=== PATIENT | male | born 1965 | race Caucasian/White ===

== ENCOUNTER → 2016-09-28 | Outpatient (REF) | payer OTHER ==
[~2016-09-28] MED LIST: AMIT25TA PO; ATEN50TA2 PO; LISI-538 PO; LYRI75CA PO
[2016-09-28 13:54] LABS: ALBUMIN 3.9 GM/DL (3.2-5.2); ALKALINE PHOSPHATASE 91 U/L (45-117); ALT/SGPT 35 U/L (12-78); ANION GAP 11 MEQ/L (8-16); AST/SGOT 28 U/L (15-37); BILIRUBIN,TOTAL 0.5 MG/DL (0.2-1.0); BLOOD UREA NITROGEN 18 MG/DL (7-18); CARBON DIOXIDE LEVEL 22 MEQ/L (21-32); CHLORIDE LEVEL 104 MEQ/L (98-107); CHOLESTEROL LEVEL 199 MG/DL (<200); CREATININE FOR GFR 0.89 MG/DL (0.70-1.30); GLOMERULAR FILTRATION RATE > 60.0 (>56); GLUCOSE, FASTING 79 MG/DL (70-105); POTASSIUM SERUM 4.6 MEQ/L (3.5-5.1); SODIUM LEVEL 137 MEQ/L (136-145); TOTAL PROTEIN 6.9 GM/DL (6.4-8.2); TRIGLYCERIDES LEVEL 264 MG/DL (<150)
== END ==
LOC: M SFHCPLAZ 10:05
PROVIDERS: ATTEND Family Medicine
DX: Z13.220 Encounter for screening for lipoid disorders (principal); Z13.1 Encounter for screening for diabetes mellitus; Z91.19 Patient's noncompliance with other medical treatment and regimen; I10 Essential (primary) hypertension; Z79.899 Other long term (current) drug therapy
CPT/HCPCS: 36415; 80053; 80061; 83036; G0463

== ENCOUNTER → 2016-10-16 | Outpatient (REF) | payer OTHER ==
[2016-10-16 16:48] LABS: CREATININE FOR GFR 1.8 MG/DL (0.70-1.30); GLOMERULAR FILTRATION RATE 42.2 (>56)
== END ==
LOC: M LABDRAWP 15:28
PROVIDERS: ATTEND Pain Medicine Interventional Pain Medicine
DX: M54.12 Radiculopathy, cervical region (principal); I10 Essential (primary) hypertension; M51.27 Other intervertebral disc displacement, lumbosacral region; M54.81 Occipital neuralgia; M96.1 Postlaminectomy syndrome, not elsewhere classified

== ENCOUNTER → 2016-12-03 | Outpatient (CLI) | payer OTHER, MEDICAID | LOC: M OUTALCOH 08:34 | PROVIDERS: ATTEND Psychiatry & Neurology Psychiatry | DX: F11.20 Opioid dependence, uncomplicated (principal) ==

== ENCOUNTER → 2016-12-09 | Outpatient (REF) | payer OTHER ==
[2016-12-09 13:28] LABS: BASO % 0.6 % (0.0-1.0); EOS # 0.3 K/mm3 (0.0-0.50); EOS % 3.8 % (0.0-3.0); LARGE UNSTAINED CELL # 0.3 K/mm3 (0.0-0.4); LARGE UNSTAINED CELL % 3.8 % (0.0-4.0); LYMPH # 2.2 K/mm3 (1.5-4.5); LYMPH % 26.7 % (24.0-44.0); MEAN CORPUSCULAR HEMOGLOBIN 29.7 pg (27.0-33.0); MEAN CORPUSCULAR HGB CONC 33.7 g/dl (32.0-36.5); MONO # 0.7 K/mm3 (0.0-0.8); MONO % 8.3 % (0.0-5.0); NEUTROPHILS # 4.7 K/mm3 (1.8-7.7); NEUTROPHILS % 56.7 % (36.0-66.0); PLATELET COUNT, AUTOMATED 242 k/mm3 (150-450); RED CELL DISTRIBUTION WIDTH 12.9 % (11.5-14.5); WHITE BLOOD COUNT 8.2 K/mm3 (4.0-10.0)
[2016-12-09 13:32] LABS: INR 0.98
[2016-12-09 13:35] LABS: ALBUMIN 3.8 GM/DL (3.2-5.2); ALBUMIN/GLOBULIN RATIO 1.36 (1.00-1.93); ALKALINE PHOSPHATASE 94 U/L (45-117); ALT/SGPT 34 U/L (12-78); ANION GAP 4 MEQ/L (8-16); AST/SGOT 25 U/L (15-37); BILIRUBIN,TOTAL 0.7 MG/DL (0.2-1.0); BLOOD UREA NITROGEN 16 MG/DL (7-18); CALCIUM LEVEL 8.9 MG/DL (8.5-10.1); CARBON DIOXIDE LEVEL 33 MEQ/L (21-32); CHLORIDE LEVEL 99 MEQ/L (98-107); GLOMERULAR FILTRATION RATE > 60.0 (>56); GLUCOSE, FASTING 97 MG/DL (70-105); POTASSIUM SERUM 4.8 MEQ/L (3.5-5.1); SODIUM LEVEL 136 MEQ/L (136-145); TOTAL PROTEIN 6.6 GM/DL (6.4-8.2)
== END ==
LOC: M SFHCPLAZ 09:56
PROVIDERS: ATTEND Family Medicine
DX: Z01.818 Encounter for other preprocedural examination (principal); M50.20 Other cervical disc displacement, unspecified cervical region; F11.20 Opioid dependence, uncomplicated; Z79.899 Other long term (current) drug therapy
CPT/HCPCS: 80053; 81001; 85025; 85610; 85730; 87086; 93005; G0463

== ENCOUNTER 2016-12-16 11:34 | Outpatient (RCR) | payer OTHER, MEDICAID | END 2016-12-25 | LOC: M OUTALCOH 11:34 | PROVIDERS: ATTEND Psychiatry & Neurology Psychiatry | DX: F11.20 Opioid dependence, uncomplicated (principal); F17.200 Nicotine dependence, unspecified, uncomplicated ==

== ENCOUNTER → 2017-02-01 | Outpatient (CLI) | payer OTHER, MEDICAID | LOC: M OUTALCOH 12:42 | PROVIDERS: ATTEND Psychiatry & Neurology Psychiatry | DX: F11.20 Opioid dependence, uncomplicated (principal) ==

== ENCOUNTER → 2017-02-25 | Outpatient (RCR) | payer OTHER, MEDICAID | LOC: M OUTALCOH 02-10 14:54 | PROVIDERS: ATTEND Psychiatry & Neurology Psychiatry | DX: F11.20 Opioid dependence, uncomplicated (principal); F17.210 Nicotine dependence, cigarettes, uncomplicated ==

== ENCOUNTER → 2018-04-26 | Outpatient (CLI) | payer MEDICARE | LOC: M RAD 07:09 | DX: B18.2 Chronic viral hepatitis C (principal) | CPT/HCPCS: 76705 ==

== ENCOUNTER → 2018-08-01 | Outpatient (REF) | payer MEDICARE ==
[2018-08-03 14:36] LABS: HEPATITIS C QUANTITATION HCV Not Detected IU/mL (.)
== END ==
LOC: M SFHCPLAZ 13:03
DX: B18.2 Chronic viral hepatitis C (principal)

== ENCOUNTER → 2018-11-24 | Outpatient (REF) | payer MEDICARE, MEDICAID | LOC: M SFHCPLAZ 15:39 | PROVIDERS: ATTEND Hospitalist | DX: D23.4 Other benign neoplasm of skin of scalp and neck (principal) | CPT/HCPCS: 88305; G0463 ==

== ENCOUNTER → 2018-12-30 | Outpatient (REF) | payer MEDICARE ==
[2018-12-30 19:26] LABS: ALT/SGPT 100 U/L (12-78); AMYLASE 40 U/L (25-115); BILIRUBIN,TOTAL 0.3 MG/DL (0.2-1.0); BLOOD UREA NITROGEN 21 MG/DL (7-18); CALCIUM LEVEL 9.5 MG/DL (8.5-10.1); CARBON DIOXIDE LEVEL 31 MEQ/L (21-32); CHLORIDE LEVEL 104 MEQ/L (98-107); CREATININE FOR GFR 1.03 MG/DL (0.70-1.30); GLOMERULAR FILTRATION RATE > 60.0 (>56); GLUCOSE, FASTING 101 MG/DL (70-100); LIPASE 92 U/L (73-393); POTASSIUM SERUM 4.8 MEQ/L (3.5-5.1); SODIUM LEVEL 141 MEQ/L (136-145); TOTAL PROTEIN 7.1 GM/DL (6.4-8.2)
[2018-12-30 19:37] LABS: BASO % 0.5 % (0.0-1.0); EOS # 0.4 10^3/uL (0.0-0.50); EOS % 4.9 % (0.0-3.0); HEMATOCRIT 36.4 % (42.0-52.0); HEMOGLOBIN 11.7 g/dl (13.5-17.5); LYMPH # 1.9 10^3/uL (1.5-4.5); LYMPH % 25.1 % (24.0-44.0); MEAN CORPUSCULAR HEMOGLOBIN 30.1 pg (27.0-33.0); MEAN CORPUSCULAR HGB CONC 32.1 g/dl (32.0-36.5); MEAN CORPUSCULAR VOLUME 93.6 fl (80.0-96.0); MONO # 0.6 10^3/uL (0.0-0.8); MONO % 8.5 % (0.0-5.0); NEUTROPHILS # 4.5 10^3/uL (1.8-7.7); NEUTROPHILS % 60.7 % (36.0-66.0); PLATELET COUNT, AUTOMATED 264 10^3/uL (150-450); RED BLOOD COUNT 3.89 10^6/uL (4.30-6.10); WHITE BLOOD COUNT 7.4 10^3/uL (4.0-10.0)
== END ==
LOC: M LABDRWAD 10:15
PROVIDERS: ATTEND Physician Assistant Medical
DX: R10.9 Unspecified abdominal pain (principal)

== ENCOUNTER → 2019-12-06 | Outpatient (CLI) | payer MEDICARE ==
[~2019-12-06] MED LIST changes: +AMLO10TA PO; +ATOR1TAB19 PO; +CHLO125TA PO; +FLOM0.4C39 PO; +GABA-845 PO
[2019-12-06 11:39] LABS: HEMATOCRIT 37.9 % (42.0-52.0); HEMOGLOBIN 12.7 g/dl (13.5-17.5); MEAN CORPUSCULAR HGB CONC 33.5 g/dl (32.0-36.5); MEAN CORPUSCULAR VOLUME 86.5 fl (80.0-96.0); PLATELET COUNT, AUTOMATED 272 10^3/uL (150-450); RED BLOOD COUNT 4.38 10^6/uL (4.30-6.10); WHITE BLOOD COUNT 6.8 10^3/uL (4.0-10.0)
[2019-12-06 11:50] LABS: INR 1.03; PROTHROMBIN TIME 13.2 SECONDS (11.8-14.0)
[2019-12-06 12:12] LABS: ERYTHROCYTE SEDIMENTATION RATE 10 mm/hr (0-20)
[2019-12-06 12:21] LABS: ALBUMIN 3.9 GM/DL (3.2-5.2); BILIRUBIN,TOTAL 0.5 MG/DL (0.2-1.0); CALCIUM LEVEL 9.1 MG/DL (8.5-10.1); CREATININE FOR GFR 1.38 MG/DL (0.70-1.30); GLOMERULAR FILTRATION RATE 56.7 (>56); POTASSIUM SERUM 3.9 MEQ/L (3.5-5.1); TOTAL PROTEIN 6.6 GM/DL (6.4-8.2)
--- NOTE | 2019-12-06 16:41 | REP ---
Two-view chest: 12/06/2019. Indication: Preoperative assessment. Comparison: 07/17/2013. Findings: The lungs are clear. There is no pleural effusion or pneumothorax. Dextroscoliotic curve of the thoracic spine is noted. Cardiac silhouette is normal. Lower cervical spine sequelae of ACDF are noted. Impression: No acute cardiopulmonary process. Electronically Signed by Maxim Guan DO 12/06/2019 04:32 P
--- NOTE | 2019-12-06 18:53 | ECGEPIP ---
[facility] Test Date: 2019-12-06 Pat Name: CARLOTTA RIVERO Department: Room: - Gender: Male [employer]: : 1965 Requested By: Du Mendoza Order Number: [id number] Reading MD: Milton Khan Measurements Intervals [place] Rate: 73 P: 21 CO: 167 QRS: 19 QRSD: 102 T: 38 QT: 386 QTc: 426 Interpretive Statements SINUS RHYTHM Rate increased from tracing done 02-19-15 Electronically Signed on 12-06-2019 18:52:31 EDT by Milton Khan
== END ==
LOC: M LAB 10:50
PROVIDERS: ATTEND Orthopaedic Surgery
DX: Z01.818 Encounter for other preprocedural examination (principal); M17.11 Unilateral primary osteoarthritis, right knee

== ENCOUNTER → 2019-12-08 | Outpatient (CLI) | payer MEDICARE | LOC: M LABSMTC 11:21 | PROVIDERS: ATTEND Anesthesiology | DX: Z01.818 Encounter for other preprocedural examination (principal); Z11.59 Encounter for screening for other viral diseases; Z03.818 Encounter for observation for suspected exposure to other biological agents ruled out | CPT/HCPCS: C9803; U0003 ==

== ENCOUNTER 2019-12-11 14:30 | Inpatient (IN) | payer MEDICARE, MEDICAID ==
[~2019-12-11] VITALS: Ht 172.7 cm; Wt 98.2 kg
--- NOTE | 2019-12-21 16:43 | HPE ---
DATE OF SCHEDULED ADMISSION: 12/27/2019 ATTENDING PHYSICIAN: Dr. Du Mendoza CHIEF COMPLAINT: Right knee pain and stiffness. HISTORY: The patient is a 54-year-old male with progressively worsening right knee pain and stiffness. He has failed to improve with conservative measures. He continues to have symptoms with weightbearing activities and activities of daily living. He has consented for an elective right total knee arthroplasty with Dr. Mendoza for his continued symptoms. Medical optimization completed with Dr. Muniz; it was reviewed during today's visit. CURRENT MEDICATIONS: - Lipitor 80 mg daily - gabapentin 800 mg three times daily - lisinopril 40 mg daily - Norvasc 10 mg daily - Percocet one tablet every 6 hours as needed for pain - tamsulosin 0.4 mg daily - chlorthalidone 25 mg daily - naproxen 500 mg twice daily as needed ALLERGIES: There are no known drug allergies. CHRONIC MEDICAL CONDITIONS: Chronic hepatitis C, history of IV drug abuse and narcotics, lipoma of the spermatic cord, inguinal hernia on the right, insomnia, lumbar degenerative disc disease, hyperlipidemia, hypertension, BPH. PAST SURGICAL HISTORY: Cholecystectomy, tonsillectomy and adenoidectomy, back surgery. SOCIAL HISTORY: The patient is a current smoker and not interested in quitting. He does not use alcohol. The patient has a history of IV drug abuse and narcotic abuse. REVIEW OF SYSTEMS: The patient denies fevers, chills, nausea, vomiting or diarrhea. Denies chest pain, shortness of breath, lightheadedness, dizziness or headaches. Denies any abdominal pain. Denies any recent upper respiratory or urinary tract infection symptoms. He does continue to have right knee pain with weightbearing activities and activities of daily living. PHYSICAL EXAMINATION: General: Well-nourished, well-developed male in no apparent distress. He is alert, oriented and cooperative. Mood and affect are appropriate. Vital signs: Height 68 inches, weight 220 pounds, temperature 96.9, blood pressure 125/65, heart rate 72, respirations 24. Neck: Supple without lymphadenopathy. Heart: Regular rate and rhythm. Lungs: Clear to auscultation bilaterally. Breathing is regular and nonlabored. Abdomen: Bowel sounds are present. Abdomen is soft and nontender to palpation. Musculoskeletal: Right knee exhibits no gross abnormalities. Skin is intact. There is tenderness along the medial joint line. Range of motion is between 2 and 120 degrees. Strength in the right lower extremity is 5/5. There was no hip irritability elicited with range of motion testing. The patient's calf is soft, nontender to palpation with no palpable cords noted. He is neurovascularly intact distally. IMAGING/LABORATORY DATA: Chest x-ray: No acute cardiopulmonary process. Right knee x-ray: Notable for end-stage degenerative changes. EKG does show a sinus rhythm. Prothrombin time is 13.2, INR is 1.03. Complete blood count: ESR 10, WBC is 6.8, RBC is 4.38, hemoglobin decreased at 12.7, hematocrit decreased at 37.9, platelets 272. Comprehensive metabolic profile: Fasting glucose 89, BUN 15, creatinine elevated at 1.38, GFR 56.7, sodium 138, potassium 3.9, chloride 102, carbon dioxide 30, anion gap decreased at 6, calcium 91, AST 11, ALT 28, alkaline phosphatase 95, total bilirubin 0.5, total protein 6.6, albumin 3.9, albumin-globulin ratio 1.4. IMPRESSION: Right knee osteoarthritis with x-rays notable for end-stage degenerative changes. PLAN: The patient has consented for an elective right total knee arthroplasty with Dr. Mendoza for his continued symptoms. Medical optimization completed with Dr. Muniz. The patient will contact the surgery center the day before surgery to get a report time for the following day. He will be nothing by mouth after midnight the night before surgery with the exception of any medications he may take with a small sip of water per his primary animal care giver. The patient will follow his primary animal care giver's recommendations for how to take his daily medications and when to stop anticoagulants if needed. The patient will start using his Hibiclens and Bactroban 5 days prior to surgery.
[2019-12-27] VITALS (11 sets, daily range): BP systolic 110–142; BP diastolic 59–81; O2SAT 96
[2019-12-27] MEDS ORDERED: ceFAZolin SOD 2 GM in IV 1 EA IV ONE (07:00)
[2019-12-27] MEDS ORDERED: LR 1,000 ML IV ONE (07:00)
[2019-12-27] MEDS ORDERED: TRANEXAMIC ACID 100 MG/ML 10ML VIAL As Ordered ONE (08:55)
[2019-12-27] MEDS ORDERED: ceFAZolin 1GM VIAL (J0690 PER 500MG) As Ordered ONE (08:55)
[2019-12-27] MEDS ORDERED: EPINEPHrine INJ 1 MG/ML 1ML AMP As Ordered ONE (08:55)
[2019-12-27] MEDS ORDERED: BUPIVACAINE LIPOSOME/PF 1.3% 20ML VIAL (13.3MG/ML)(EXPAREL)(C9290 PER1MG) As Ordered ONE (08:55)
[2019-12-27] MEDS ORDERED: MIDAZOLAM INJ 2MG/2ML VIAL (J2250 PER 1MG) As Ordered ONE ×3 (08:59→11:50)
[2019-12-27] MEDS ORDERED: fentaNYL 100 MCG/2 ML INJECTION (J3010) As Ordered ONE ×3 (08:59→11:51)
[2019-12-27] MEDS: CHLORTHALIDONE 12.5MG PER 1/2 TABLET PO SCH (09:00)
[2019-12-27] MEDS ORDERED: propofoL 200 MG/20 ML VIAL As Ordered ONE (09:37)
[2019-12-27] MEDS ORDERED: ONDANSETRON 4MG/2ML VIAL As Ordered ONE (09:37)
[2019-12-27] MEDS ORDERED: METOCLOPRAMIDE INJ 10MG/2ML VIAL (J2765 PER 1) As Ordered ONE (09:37)
[2019-12-27] MEDS ORDERED: LIDOCAINE 2% 100MG/5ML SDV (FOR ANES.) As Ordered ONE (09:37)
[2019-12-27] MEDS ORDERED: MIDAZOLAM INJ 2MG/2ML VIAL (J2250 PER 1MG) IV ONE (09:45)
[2019-12-27] MEDS ORDERED: fentaNYL 100 MCG/2 ML INJECTION (J3010) IV ONE (09:45)
--- NOTE | 2019-12-27 09:56 | IPN ---
DATE: 12/27/2019 Patient seen and examined. He wishes to go ahead with a right total knee arthroplasty. He understands the nature of this, the risks of bleeding, infection, damage to nerves, vessels, persistent pain, wear loosening, blood clots, medical problems, , among others. I explained to the patient that I think he is going to probably have significantly more postoperative pain than most patients because of his history of narcotic use and abuse. He also indicated that when he came in this morning he said he felt like he was still drunk from drinking last night, but apparently his ethyl alcohol (EtOH) level was near zero. He does wish to go ahead with the surgery. I explained him that I would anticipate trying to get him home tomorrow if he is getting around okay.
[2019-12-27] MEDS ORDERED: KETAMINE INJ 500 MG/5 ML VIAL As Ordered ONE (11:21)
[2019-12-27] MEDS ORDERED: hydrALAZINE 20MG/ML 1ML VIAL (J0360 PER 20MG) As Ordered ONE (11:21)
[2019-12-27] MEDS ORDERED: ROCURONIUM BROMIDE 50 MG/5 ML VIAL As Ordered ONE (11:21)
[2019-12-27] MEDS ORDERED: KETAMINE HCL 200 MG/20 ML VIAL As Ordered ONE (11:23)
[2019-12-27] MEDS ORDERED: EPINEPHrine INJ 1 MG/ML 1ML AMP ONE (11:24)
[2019-12-27] MEDS ORDERED: ROPIvacaine 0.5% 30ML INJECTION (J2795 PER 1MG) ONE (11:24)
[2019-12-27] MEDS ORDERED: dexameTHASONE 10MG/1ML VIAL PRES.FREE (J1100 PER 1MG) ONE (11:24)
[2019-12-27] MEDS ORDERED: SUGAMMADEX SODIUM 500 MG/5 ML VIAL (BRIDION) As Ordered ONE (11:27)
[2019-12-27] MEDS: fentaNYL 100 MCG/2 ML INJECTION (J3010) IV PRN ×4 (11:52→12:17)
[2019-12-27] MEDS ORDERED: HYDROMORPHONE HCL 0.5 MG/ 0.5 ML SYRINGE (J1170 PER 1) As Ordered ONE (11:57)
[2019-12-27] MEDS: HYDROMORPHONE HCL 0.5 MG/ 0.5 ML SYRINGE (J1170 PER 1) IV PRN ×4 (12:02→12:45)
[2019-12-27] MEDS ORDERED: ACETAMINOPHEN TAB 650MG DOSE (2X325MG) PO PRN (12:15)
[2019-12-27] MEDS ORDERED: MORPHINE 4 MG/ML 1ML VIAL/SYRINGE (J2270) IV PRN (12:15)
[2019-12-27] MEDS ORDERED: PERCOCET 5MG/325MG TAB PO PRN ×2 (12:15→21:45)
[2019-12-27] MEDS ORDERED: LR 1,000 ML IV SCH ×2 (12:15)
[2019-12-27] MEDS ORDERED: ONDANSETRON 4MG/2ML VIAL IV PRN ×2 (12:15)
[2019-12-27] MEDS: oxyCODONE 5MG TAB PO PRN ×2 (12:18→12:51)
--- NOTE | 2019-12-27 12:32 | REP ---
Clinical: Status post knee replacement. Technique portable AP and cross-table lateral views. Findings: The patient is status post right knee replacement with normal positioning and appearance to the femoral and tibial components. Overlying postsurgical changes appreciated. Impression: Status post right knee replacement. Electronically Signed by Rodrigo Silvestre MD 12/27/2019 12:23 P
[2019-12-27] MEDS ORDERED: GABA800T4 PO (13:15)
[2019-12-27] MEDS ORDERED: LISI40TA PO (13:15)
--- NOTE | 2019-12-27 13:16 | CR.PDOC ---
General Date of Consultation: Dec 27, 2019 Consultation REASON FOR CONSULTATION/CHIEF COMPLAINT: Who presented to [facility] for an elective right knee arthroplasty Medical management HISTORY OF PRESENT ILLNESS: Patient is a 54-year-old male with PMHx of HTN, DLP, Chronic back / neck pain, OA, Hepatitis C (s/p treatment), Hx of IVDA, BPH, Insomnia, who presented to [facility] for an elective orthopedic procedure. Patient had an elective right knee arthroplasty completed by orthopedic surgery. He has received outpatient medical clearance from his primary care provider. Patient reported that he was taken off of his opiate therapy 2 weeks ago and was experiencing significant pain yesterday evening. Patient self medicated at home by drinking 6 years. This morning patient had an alcohol level that was found to be in significant and surgery was continued as scheduled. Patient was seen postoperatively and reports pain. Unable to address any specific questions, however, did report significant pain of his back and both knees. ALLERGIES: Please see below. HOME MEDICATIONS: Please see below. PAST MEDICAL HISTORY: HTN, DLP, Chronic back / neck pain, OA, Hepatitis C (s/p treatment), Hx of IVDA, BPH, Insomnia, PAST SURGICAL HISTORY: Right inguinal hernia repair Cholecystectomy Tonsillectomy Adenoidectomy Back surgery; lower back fusion 2005, Neck fusion 2014 FAMILY HISTORY: Family history was reviewed and is noncontributory to this hospitalization SOCIAL HISTORY: - Reported use of alcohol yesterday, patient is an active smoker - Denies recent travel or sick contacts REVIEW OF SYSTEMS: Patient is reporting significant pain of his back and knees and is unable to answer other questions PHYSICAL EXAMINATION: - Vitals: BP 165/93, HR 85, RR 16, Sat 97%RA, Temp 97.9F - General: Lying in bed, Appears to be in pain / uncomfortable, AAOx3 - HEENT: NC, AT, PERRLA - CVS: +S1S2 - Lungs: Fair air entry bilaterally, No appreciable wheezing / rales / rhonchi - Abdomen: Soft, Non-distended, Non-tender - Extremities: No lower extremity edema, No calf tenderness - Neuro: No focal motor or sensory deficit - Skin: No visible rashes LABORATORY DATA: Please see below. ASSESSMENT/PLAN: Elective total right knee arthroplasty - Patient presented to [facility] for elective orthopedic procedure - Has received outpatient medical clearance for this procedure from primary care provider - Pain control, anticoagulation, and physical therapy at the direction of primary orthopedic team HTN - BP moderately elevated; likely 2/2 pain - Pain currently being managed by orthopedic team - c/w Amlodipine, Chlorthalidone and Lisinopril with holding parameters DLP - c/w Atorvastatin Chronic back / neck pain / OA - c/w Gabapentin - Pain control as per orthopedic team Hepatitis C - s/p treatment) Hx of IVDA / Alcohol abuse - Will start Thiamine, Folate and Multivitamins - Will start CIWA protocol - Will continue with continuous pulse oximeter / SARA protocol BPH - c/w Tamsulosin Insomnia DVT prophylaxis - As per primary orthopedic team Vital Signs/I&O Vital Signs Date Time Temp Pulse Resp B/P (MAP) Pulse Ox O2 Delivery O2 Flow Rate FiO2 12/27/19 12:55 97.9 85 16 165/93 (117) 97 Room Air 12/27/19 11:55 10 Laboratory Data Labs 24H Laboratory Tests 2 12/27/19 08:14: Ethyl Alcohol Level 0.006 Allergies Coded Allergies: No Known Allergies (Verified , 08/18/04) Home Medications Scheduled Amlodipine Besylate (Norvasc) 10 Mg Tablet, 10 MG PO DAILY, (Reported) Atorvastatin Calcium (Atorvastatin Calcium) 10 Mg Tablet, 80 MG PO DAILY, (Reported) Chlorthalidone (Chlorthalidone) 25 Mg Tablet, 12.5 MG PO DAILY, (Reported) Gabapentin (Gabapentin) 400 Mg Capsule, 800 MG PO TID, (Reported) Lisinopril (Lisinopril) 20 Mg Tab, 40 MG PO DAILY, (Reported) Tamsulosin HCl (Flomax) 0.4 Mg Capsule, 0.4 MG PO DAILY, (Reported) YOSVANY ESQUIVEL MD Dec 27, 2019 13:16
[2019-12-27] MEDS: MORPHINE 2 MG/ML 1ML VIAL (J2270) IV PRN ×2 (13:44→18:34)
[2019-12-27] MEDS: ATORVASTATIN 20 MG TAB PO SCH (14:02)
[2019-12-27] MEDS: amLODIPine 10 MG TAB PO SCH (14:03)
[2019-12-27] MEDS: FOLIC ACID 1 MG TAB PO SCH (14:03)
[2019-12-27] MEDS: MULTIVITAMINS/MINERALS THERAP 1 TAB PO SCH (14:03)
[2019-12-27] MEDS: lisinopriL 20 MG TAB PO SCH (14:03)
[2019-12-27] MEDS: THIAMINE 100 MG TAB PO SCH (14:03)
[2019-12-27] MEDS: ceFAZolin SOD 2 GM in IV 1 EA IV SCH (17:42)
[2019-12-27] MEDS: GABAPENTIN 400 MG CAP PO SCH (19:57)
[2019-12-27] MEDS ORDERED: MORPHINE 15 MG SA TAB PO SCH (20:00)
[2019-12-27] MEDS: PERCOCET 5MG/325MG TAB PO PRN (21:44)
[2019-12-28] VITALS (13 sets, daily range): BP systolic 132–160; BP diastolic 76–89; O2SAT 96–98
[2019-12-28] MEDS: ceFAZolin SOD 2 GM in IV 1 EA IV SCH (01:42)
[2019-12-28] MEDS: PERCOCET 5MG/325MG TAB PO PRN ×5 (01:43→21:01)
[2019-12-28] MEDS: MORPHINE 4 MG/ML 1ML VIAL/SYRINGE (J2270) IV PRN ×6 (06:15→22:41)
[2019-12-28] MEDS ORDERED: XARE10TA PO (06:43)
[2019-12-28] MEDS ORDERED: MORP-69 PO (06:43)
[2019-12-28] MEDS ORDERED: PERC5TAB12 PO (06:43)
[2019-12-28 07:08] LABS: HEMOGLOBIN 12.1 g/dl (13.5-17.5); MEAN CORPUSCULAR HEMOGLOBIN 29.6 pg (27.0-33.0); MEAN CORPUSCULAR HGB CONC 33.6 g/dl (32.0-36.5); PLATELET COUNT, AUTOMATED 310 10^3/uL (150-450); RED BLOOD COUNT 4.09 10^6/uL (4.30-6.10); WHITE BLOOD COUNT 14.7 10^3/uL (4.0-10.0)
[2019-12-28 07:33] LABS: BLOOD UREA NITROGEN 21 MG/DL (7-18); CALCIUM LEVEL 9.4 MG/DL (8.5-10.1); CARBON DIOXIDE LEVEL 33 MEQ/L (21-32); CHLORIDE LEVEL 98 MEQ/L (98-107); CREATININE FOR GFR 1.13 MG/DL (0.70-1.30); GLOMERULAR FILTRATION RATE > 60.0 (>56); GLUCOSE, FASTING 115 MG/DL (70-100); MAGNESIUM LEVEL 2.2 MG/DL (1.8-2.4); POTASSIUM SERUM 4.3 MEQ/L (3.5-5.1); SODIUM LEVEL 135 MEQ/L (136-145)
[2019-12-28] MEDS: lisinopriL 20 MG TAB PO SCH (07:48)
[2019-12-28] MEDS: amLODIPine 10 MG TAB PO SCH (07:50)
[2019-12-28] MEDS: GABAPENTIN 400 MG CAP PO SCH ×3 (07:50→21:01)
[2019-12-28] MEDS: CHLORTHALIDONE 12.5MG PER 1/2 TABLET PO SCH (07:50)
[2019-12-28] MEDS: TAMSULOSIN 0.4 MG CAP PO SCH (07:51)
[2019-12-28] MEDS: MIRALAX *UNIT DOSE* 17GM PACKET PO SCH (07:51)
[2019-12-28] MEDS: MOM 30ML SUSPENSION UDC PO SCH (07:51)
[2019-12-28] MEDS: FOLIC ACID 1 MG TAB PO SCH (07:51)
[2019-12-28] MEDS: MULTIVITAMINS/MINERALS THERAP 1 TAB PO SCH (07:51)
[2019-12-28] MEDS: THIAMINE 100 MG TAB PO SCH (07:51)
[2019-12-28] MEDS: ATORVASTATIN 20 MG TAB PO SCH (07:51)
[2019-12-28] MEDS: LORazepam 2 MG TAB PO PRN ×2 (09:51→15:07)
--- NOTE | 2019-12-28 10:35 | IPNPDOC ---
Text Note Date of Service The patient was seen on 12/28/19. NOTE Subjective: Patient is a 54-year-old male with PMHx of HTN, DLP, Chronic back / neck pain, OA, Hepatitis C (s/p treatment), Hx of IVDA, BPH, Insomnia, who presented to [facility] for an elective orthopedic procedure. Patient had an elective right knee arthroplasty completed by orthopedic surgery. He has received outpatient medical clearance from his primary care provider. Patient was seen and examined at the bedside. Patient reports that he still experiencing right knee pain. Denies any nausea, vomiting, abdominal pain, diarrhea, or urinary discomfort Objective: Vitals (See below) General: Lying in bed, reporting right knee pain, AAOx3 HEENT: NC, AT CVS: +S1S2 Lungs: Fair air entry b/l, -w/r/r Abdomen: Soft, ND, NT Extremities: - Edema, - Calf tenderness Assessment and plan: Elective total right knee arthroplasty (POD#1) - Patient presented to [facility] for elective orthopedic procedure - Has received outpatient medical clearance for this procedure from primary care provider - Pain control, anticoagulation, and physical therapy at the direction of [facility] orthopedic team HTN - BP better controlled - Pain currently being managed by orthopedic team - c/w Amlodipine, Chlorthalidone and Lisinopril with holding parameters DLP - c/w Atorvastatin Chronic back / neck pain / OA - c/w Gabapentin - Pain control as per orthopedic team Hepatitis C - s/p treatment Hx of IVDA / Alcohol abuse - c/w Thiamine, Folate and Multivitamins - No evidence of alcohol withdrawal - c/w CIWA protocol - Will continue with continuous pulse oximeter / SARA protocol BPH - c/w Tamsulosin Insomnia DVT prophylaxis - As per primary orthopedic team VS,Fishbone, I+O VS, Fishbone, I+O Laboratory Tests 12/28/19 06:57 Vital Signs Date Time Temp Pulse Resp B/P (MAP) Pulse Ox O2 Delivery O2 Flow Rate FiO2 12/28/19 09:13 20 Room Air 12/28/19 08:30 97.4 82 152/82 (105) 100 12/27/19 11:55 10 I&O- Last 24 Hours up to 6 AM 12/28/19 06:00 Intake Total 3130 ml Output Total 3750 ml Balance -620 ml YOSVANY ESQUIVEL MD Dec 28, 2019 10:35
[2019-12-28] MEDS: RIVAROXABAN 10 MG TAB (XARELTO) PO SCH (16:53)
[2019-12-29] VITALS (8 sets, daily range): BP systolic 104–150; BP diastolic 67–101; O2SAT 94
[2019-12-29] MEDS: MORPHINE 4 MG/ML 1ML VIAL/SYRINGE (J2270) IV PRN ×4 (02:40→21:49)
[2019-12-29] MEDS: LORazepam 2 MG TAB PO PRN (02:40)
[2019-12-29] MEDS: PERCOCET 5MG/325MG TAB PO PRN ×4 (06:13→22:49)
[2019-12-29 08:34] LABS: BASO # 0.1 10^3/uL (0.0-0.2); BASO % 0.5 % (0.0-1.0); EOS # 0.2 10^3/uL (0.0-0.5); EOS % 1.5 % (0.0-3.0); HEMATOCRIT 31.9 % (42.0-52.0); HEMOGLOBIN 10.9 g/dl (13.5-17.5); LYMPH # 1.8 10^3/uL (1.5-5.0); MEAN CORPUSCULAR HEMOGLOBIN 29.9 pg (27.0-33.0); MEAN CORPUSCULAR HGB CONC 34.2 g/dl (32.0-36.5); MEAN CORPUSCULAR VOLUME 87.4 fl (80.0-96.0); MONO # 0.9 10^3/uL (0.0-0.8); MONO % 9.3 % (0.0-5.0); NEUTROPHILS # 6.8 10^3/uL (1.5-8.5); NEUTROPHILS % 70.4 % (36.0-66.0); PLATELET COUNT, AUTOMATED 255 10^3/uL (150-450); RED BLOOD COUNT 3.65 10^6/uL (4.30-6.10); WHITE BLOOD COUNT 9.7 10^3/uL (4.0-10.0)
[2019-12-29 08:57] LABS: BLOOD UREA NITROGEN 18 MG/DL (7-18); CARBON DIOXIDE LEVEL 29 MEQ/L (21-32); CHLORIDE LEVEL 99 MEQ/L (98-107); GLOMERULAR FILTRATION RATE > 60.0 (>56); GLUCOSE, FASTING 134 MG/DL (70-100); MAGNESIUM LEVEL 2.1 MG/DL (1.8-2.4); POTASSIUM SERUM 3.9 MEQ/L (3.5-5.1); SODIUM LEVEL 137 MEQ/L (136-145)
[2019-12-29] MEDS: lisinopriL 20 MG TAB PO SCH (08:59)
[2019-12-29] MEDS: MOM 30ML SUSPENSION UDC PO SCH (08:59)
[2019-12-29] MEDS: TAMSULOSIN 0.4 MG CAP PO SCH (08:59)
[2019-12-29] MEDS: ATORVASTATIN 20 MG TAB PO SCH (08:59)
[2019-12-29] MEDS: MULTIVITAMINS/MINERALS THERAP 1 TAB PO SCH (08:59)
[2019-12-29] MEDS: MIRALAX *UNIT DOSE* 17GM PACKET PO SCH (08:59)
[2019-12-29] MEDS: FOLIC ACID 1 MG TAB PO SCH (08:59)
[2019-12-29] MEDS: CHLORTHALIDONE 12.5MG PER 1/2 TABLET PO SCH (09:00)
[2019-12-29] MEDS: amLODIPine 10 MG TAB PO SCH (09:00)
[2019-12-29] MEDS: GABAPENTIN 400 MG CAP PO SCH ×3 (09:00→20:02)
[2019-12-29] MEDS: THIAMINE 100 MG TAB PO SCH (09:00)
--- NOTE | 2019-12-29 09:23 | IPN ---
DATE: 12/29/2019 CHIEF COMPLAINT: Postoperative right total knee arthroplasty. This is 54-year-old man who underwent right total knee arthroplasty by Dr. Mendoza. His main concern is his pain control. He complains of pain with palpation to the knee. There is plan for him to see physical therapist today and start trying to do stairs. He has no other concerns or complaints. PHYSICAL EXAMINATION: Vital Signs: Blood pressure 149/95, pulse rate 77, temperature 98.7, 98% on room air, respiratory rate 18. He is comfortable otherwise aside from pain to palpation to the knee. Dressings intact and dry. He seems to lie with the knee in a bit of a flexed position. No calf pain. Normal sensation and motor function to his foot. He is able to dorsiflex and plantar flex the foot. Strong posterior tibialis pulse. Hemoglobin from yesterday 12.1. ASSESSMENT AND PLAN: 54-year-old man who needs to clear the stairs first before being discharged home. He seems be having still some issues with pain control. Hopefully, we can manage his pain appropriately and he can be discharged home today if he is safe to clear the stairs. If not, hopefully tomorrow. Venous thromboembolism (VTE) prophylaxis with Xarelto.
--- NOTE | 2019-12-29 10:52 | IPNPDOC ---
Text Note Date of Service The patient was seen on 12/29/19. NOTE Subjective: Patient is a 54-year-old male with PMHx of HTN, DLP, Chronic back / neck pain, OA, Hepatitis C (s/p treatment), Hx of IVDA, BPH, Insomnia, who presented to [facility] for an elective orthopedic procedure. Patient had an elective right knee arthroplasty completed by orthopedic surgery. He has received outpatient medical clearance from his primary care provider. Patient was seen and examined at the bedside. Patient reports that his right knee still in pain. Has worked with physical therapy has not yet cleared. Denies any chest pain, palpitations, abdominal pain, diarrhea, or urinary discomfort Objective: Vitals (See below) General: Remains in bed, appears to be relatively comfortable, oriented 3 HEENT: NC, AT CVS: +S1S2 Lungs: Air entry is fair bilaterally without evidence of rhonchi, crackles or wheezing Abdomen: Is without distention or tenderness, and remained soft Extremities: Lower extremities are free of pitting edema, - Calf tenderness Assessment and plan: Elective total right knee arthroplasty (POD#2) - Patient presented to [facility] for elective orthopedic procedure - Has received outpatient medical clearance for this procedure from primary care provider - Pain control, anticoagulation, and physical therapy at the direction of [facility] s/p Leukocytosis - likely 2/2 reactive etiology - No evidence of infection - Hemodynamically stable and afebrile - Hold off on antibiotic therapy HTN - BP well controlled - Pain currently being managed by orthopedic team - c/w Amlodipine, Chlorthalidone and Lisinopril with holding parameters DLP - c/w Atorvastatin Chronic back / neck pain / OA - c/w Gabapentin - Pain control as per orthopedic team Hepatitis C - s/p treatment Hx of IVDA / Alcohol abuse - c/w Thiamine, Folate and Multivitamins - No evidence of alcohol withdrawal - c/w CIWA protocol - c/w pulse oximeter / SARA protocol BPH - c/w Tamsulosin Insomnia DVT prophylaxis - As per primary orthopedic team Disposition: - Patient will likely be discharged home once cleared by physical therapy VS,[place], I+O VS, [place], I+O Laboratory Tests 12/29/19 07:59 Vital Signs Date Time Temp Pulse Resp B/P (MAP) Pulse Ox O2 Delivery O2 Flow Rate FiO2 12/29/19 09:01 19 12/29/19 09:00 94 Room Air 12/29/19 09:00 75 12/29/19 08:59 118/71 12/29/19 06:00 98.7 12/27/19 11:55 10 I&O- Last 24 Hours up to 6 AM 12/29/19 06:00 Intake Total 2320 ml Output Total 1300 ml Balance 1020 ml YOSVANY ESQUIVEL MD Dec 29, 2019 10:52
[2019-12-29] MEDS: RIVAROXABAN 10 MG TAB (XARELTO) PO SCH (17:30)
[2019-12-30] MEDS: PERCOCET 5MG/325MG TAB PO PRN ×2 (04:22→10:17)
[2019-12-30] MEDS ORDERED: XARE10TA PO ×2 (05:51→10:11)
[2019-12-30 06:00] VITALS: BP 103/66
[2019-12-30 06:53] LABS: HEMATOCRIT 32.4 % (42.0-52.0); HEMOGLOBIN 10.7 g/dl (13.5-17.5); MEAN CORPUSCULAR HEMOGLOBIN 29.4 pg (27.0-33.0); PLATELET COUNT, AUTOMATED 246 10^3/uL (150-450); RED BLOOD COUNT 3.64 10^6/uL (4.30-6.10); WHITE BLOOD COUNT 8.4 10^3/uL (4.0-10.0)
[2019-12-30] MEDS: MIRALAX *UNIT DOSE* 17GM PACKET PO SCH (08:07)
[2019-12-30] MEDS: MOM 30ML SUSPENSION UDC PO SCH (08:07)
[2019-12-30 08:08] VITALS: BP 101/65
[2019-12-30] MEDS: lisinopriL 20 MG TAB PO SCH (08:08)
[2019-12-30] MEDS: amLODIPine 10 MG TAB PO SCH (08:08)
[2019-12-30] MEDS: FOLIC ACID 1 MG TAB PO SCH (08:08)
[2019-12-30] MEDS: CHLORTHALIDONE 12.5MG PER 1/2 TABLET PO SCH (08:09)
[2019-12-30] MEDS: THIAMINE 100 MG TAB PO SCH (08:09)
[2019-12-30] MEDS: MULTIVITAMINS/MINERALS THERAP 1 TAB PO SCH (08:09)
[2019-12-30] MEDS: ATORVASTATIN 20 MG TAB PO SCH (08:09)
[2019-12-30] MEDS: GABAPENTIN 400 MG CAP PO SCH (08:09)
[2019-12-30] MEDS: TAMSULOSIN 0.4 MG CAP PO SCH (08:09)
[2019-12-30] MEDS ORDERED: MORPHINE 15 MG SA TAB PO SCH (09:00)
[2019-12-30] MEDS ORDERED: MORP15TASA PO (10:07)
[2019-12-30] MEDS ORDERED: PERC5TAB12 PO (10:07)
--- NOTE | 2019-12-30 14:22 | RO ---
DATE OF PROCEDURE: 12/27/2019 PREOPERATIVE DIAGNOSIS: Right knee osteoarthritis. POSTOPERATIVE DIAGNOSIS: Right knee osteoarthritis. PROCEDURE: Right total knee arthroplasty. SURGEON: Du Mendoza MD MEDICAL RECRUITER: Xochitl Mercado PA-C ANESTHESIA: Spinal. ESTIMATED BLOOD LOSS (EBL): 50. COMPLICATION: None. INDICATIONS: This is a 54-year-old gentleman with some chronic pain issues who has had right knee pain. It is severe arthritis, and he wished to go ahead with knee replacement. DESCRIPTION OF PROCEDURE: The patient was taken to the operating room, placed in the supine position after spinal anesthesia was induced. The right lower extremity was prepped and draped in the usual sterile fashion. Time-out was performed, and a tourniquet was inflated. I then created a longitudinal incision over the anterior aspect of the right knee. Sharp dissection was carried down through subcutaneous tissue until the deep layer was encountered. A medial parapatellar arthrotomy was performed. I then everted the patella, flexed the knee up. I had done a medial release, as well, used the canal-initiating reamer on the femoral side followed by the intramedullary guide set at 9 mm of cut and 5 of valgus. This was pinned in place, the distal femoral cut was made protecting soft tissues, and then I sized the femur to be a 4. The pin holes were placed in the end of the femur, and the cutting block was then secured. Remaining four cuts were made. I then directed our attention to the tibia. The tibial alignment guide was placed. Retractors were placed, and then I made a proximal tibia cut approximately 2 mm off the low side because it was quite deficient. This was about 12 mm off the high side. This bone was removed. The posterior cruciate ligament (PCL) had to be sacrificed due to the thickness of this cut, as I had anticipated. I then used a stone spreader operator to remove soft tissue and osteophytes from either side of the knee. We then prepared the box cut. The box cutting guide was then secured. The remaining cuts were made, and the excess bone was removed. The remaining PCL had been removed with the cautery. All hemostasis was controlled with cautery. Spacer blocks were then used, and I was deciding between a 10 and a 12 for flexion and extension, but overall the soft tissue balance was quite good. We then prepared the tibia. The size 5 tray fit nicely. This was pinned in place and drilled and broached. Trial components were then placed, and I elected to go ahead with a size 10 polyethylene, 4 femur, and 5 tibia. I then freehand cut the patella, removing about 7 mm of bone, sized to be a 35. I had removed any osteophytes from around the knee and some from around the patella. Drilled the holes for the patella, placed the patella which tracked very nicely. I then also drilled the holes in the end of the femur. The trial components fit very nicely and had excellent stability, excellent range of motion, and there was no kicking off of the femoral component. The trial components were removed. I irrigated copiously, placed the Exparel in the deep tissues. The actuarial assistant prepared the bone cement in the modern technique. Once the surfaces were irrigated and dried, I then cemented on the components, placed the polyethylene, the cement on the patella, removed all excess bone cement; and once the cement hardened, I removed the patellar clamp. The deep layer was closed with #1 Vicryl suture and running Stratafix, irrigating several times. I put the knee through a range of motion. The patella was tracking nicely, and there was excellent stability. Irrigated, closed the subcutaneous with 2-0 Vicryl, the skin with sumanth. Sterile dressing was applied. Tourniquet had been deflated previously once the cement hardened. He was taken to recovery room in stable condition. There were no known complications. The plan will be routine postoperative. ADDENDUM: The actuarial assistant was instrumental in holding retractors and assisting in mixing the bone cement and assisting in wound closure. Addendum 12/30/2019 aml
--- NOTE | 2020-01-13 12:11 | DSES ---
DATE OF ADMISSION: 12/27/2019 DATE OF DISCHARGE: 12/30/2019 ATTENDING PHYSICIAN: Dr. Du Mendoza ADMISSION DIAGNOSIS: Right knee pain and stiffness. OTHER DIAGNOSES: 1. Chronic hepatitis C. 2. History of IV drug abuse and narcotics. 3. Lipoma of the spermatic cord. 4. Inguinal hernia on the right. 5. Insomnia. 6. Lumbar degenerative disk disease. 7. Hyperlipidemia. 8. Hypertension. 9. Benign prostatic hypertrophy (BPH). DISCHARGE DIAGNOSIS: Right knee pain and stiffness status post right total knee arthroplasty. HISTORY: The patient is a 54-year-old male with progressively worsening right knee pain and stiffness. He failed to improve with conservative measures. He continued to have symptoms with weightbearing activities and activities of daily living. He consented for an elective right total knee arthroplasty with Dr. Mendoza for his continued symptoms. OPERATION PERFORMED: Right total knee arthroplasty. HOSPITAL COURSE: The patient underwent a right total knee arthroplasty under spinal anesthesia which was uneventful. He did have some issues with pain control after his surgery, but otherwise his hospital course was without complication. He was up with physical therapy per their protocol weightbearing as tolerated on the right lower extremity. The patient was discharged on oral pain medications and will resume his preoperative medications and diet. The patient will use his thromboembolic deterrent stockings and anticoagulant postoperatively to prevent deep venous thrombosis. He will follow up in our office in 12-14 days for wound check and staple removal. He is encouraged to contact our office sooner if there is any increase in pain, redness, drainage, numbness or tingling in the extremity, fever greater than 101 degrees, or any other concerns. Please see medical records for additional details. LUIS MANUEL
== END 2019-12-30 11:00 | disposition home health service (06) | DRG 470 ==
LOC: M OR 12-27 07:26 → M MS5PR 12-27 13:41
PROVIDERS: ADMIT Orthopaedic Surgery; ATTEND Orthopaedic Surgery
PROC: 0SRC0J9 Replacement of Right Knee Joint with Synthetic Substitute, Cemented, Open Approach (ICD-10-PCS; principal; 2019-12-27 09:30)
DX: M17.11 Unilateral primary osteoarthritis, right knee (principal); Z11.59 Encounter for screening for other viral diseases; G47.00 Insomnia, unspecified; I10 Essential (primary) hypertension; N20.0 Calculus of kidney; E78.5 Hyperlipidemia, unspecified; B18.2 Chronic viral hepatitis C; M51.36 Other intervertebral disc degeneration, lumbar region; K40.91 Unilateral inguinal hernia, without obstruction or gangrene, recurrent; F17.200 Nicotine dependence, unspecified, uncomplicated; Z79.899 Other long term (current) drug therapy; D72.829 Elevated white blood cell count, unspecified

== ENCOUNTER → 2019-12-24 | Outpatient (CLI) | payer MEDICARE ==
[~2019-12-24] MED LIST changes: +GABA800T4 PO; +LISI40TA PO; +MORP-69 PO; +PERC5TAB12 PO; +XARE10TA PO
== END ==
LOC: M LABSMTC 09:17
PROVIDERS: ATTEND Anesthesiology
DX: Z01.818 Encounter for other preprocedural examination (principal); Z11.59 Encounter for screening for other viral diseases

== ENCOUNTER → 2020-03-26 | Outpatient (CLI) | payer MEDICARE ==
[~2020-03-26] MED LIST changes: +MORP15TASA PO
[2020-03-26 12:31] LABS: ALBUMIN 3.9 GM/DL (3.2-5.2); ALT/SGPT 37 U/L (12-78); BILIRUBIN,TOTAL 0.4 MG/DL (0.2-1.0); BLOOD UREA NITROGEN 16 MG/DL (7-18); CALCIUM LEVEL 9.4 MG/DL (8.5-10.1); CARBON DIOXIDE LEVEL 29 MEQ/L (21-32); CHLORIDE LEVEL 103 MEQ/L (98-107); GLOMERULAR FILTRATION RATE > 60.0 (>56); GLUCOSE, FASTING 102 MG/DL (70-100); POTASSIUM SERUM 4.4 MEQ/L (3.5-5.1); SODIUM LEVEL 137 MEQ/L (136-145)
[2020-03-28 03:07] LABS: HEPATITIS C QUANTITATION HCV Not Detected IU/mL (.)
== END ==
LOC: M LAB 11:09
PROVIDERS: ATTEND Hospitalist
DX: B18.2 Chronic viral hepatitis C (principal)

== ENCOUNTER → 2020-03-26 | Outpatient (CLI) | payer MEDICARE ==
[2020-03-26 12:05] LABS: HEMATOCRIT 37.1 % (42.0-52.0); HEMOGLOBIN 12.2 g/dl (13.5-17.5); MEAN CORPUSCULAR HEMOGLOBIN 28.4 pg (27.0-33.0); MEAN CORPUSCULAR HGB CONC 32.9 g/dl (32.0-36.5); MEAN CORPUSCULAR VOLUME 86.3 fl (80.0-96.0); PLATELET COUNT, AUTOMATED 318 10^3/uL (150-450); WHITE BLOOD COUNT 6.6 10^3/uL (4.0-10.0)
[2020-03-26 12:30] LABS: ALBUMIN 3.8 GM/DL (3.2-5.2); ALT/SGPT 35 U/L (12-78); BILIRUBIN,TOTAL 0.4 MG/DL (0.2-1.0); BLOOD UREA NITROGEN 15 MG/DL (7-18); CALCIUM LEVEL 9.2 MG/DL (8.5-10.1); CARBON DIOXIDE LEVEL 29 MEQ/L (21-32); CHLORIDE LEVEL 103 MEQ/L (98-107); CREATININE FOR GFR 1.01 MG/DL (0.70-1.30); GLOMERULAR FILTRATION RATE > 60.0 (>56); GLUCOSE, FASTING 102 MG/DL (70-100); POTASSIUM SERUM 4.5 MEQ/L (3.5-5.1); SODIUM LEVEL 138 MEQ/L (136-145); TOTAL PROTEIN 6.9 GM/DL (6.4-8.2)
[2020-03-26 13:08] LABS: HEPATITIS B SURFACE ANTIGEN NEGATIVE (NEGATIVE)
[2020-03-26 13:36] LABS: HIV 1&2 SCREEN CENTAUR NEGATIVE (NEGATIVE)
[2020-03-26 16:09] LABS: HEPATITIS C VIRUS ABY INDEX > 11.0 INDEX (<0.8)
--- NOTE | 2020-03-31 10:34 | ECGEPIP ---
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
== END ==
LOC: M LAB 11:12
PROVIDERS: ATTEND Family Medicine
DX: B18.2 Chronic viral hepatitis C (principal); F11.20 Opioid dependence, uncomplicated

== ENCOUNTER → 2020-04-12 | Outpatient (CLI) | payer MEDICARE ==
--- NOTE | 2020-04-12 09:11 | REP ---
INDICATION: CHRONIC HEP C COMPARISON: 04/26/2018 TECHNIQUE: Real time ross scale ultrasound examination using curved array transducer. FINDINGS: Liver demonstrates mildly coarsened echotexture without focal hepatic lesion identified. The pancreas is incompletely evaluated due to interposed bowel gas but visualized portions appear normal. Evidence for prior cholecystectomy along with compensatory dilatation to the common bile duct at 11.7 mm diameter. The right kidney is normal in reniform shape without hydronephrosis and measures 10.6 x 5.3 x 5.1 cm. Visualized abdominal aorta appears normal. No ascites. IMPRESSION: Coarsened hepatic echotexture without focal hepatic lesion identified. <Electronically signed by Rodrigo Silvestre > 04/12/20 0907
== END ==
LOC: M RAD 07:54
PROVIDERS: ATTEND Hospitalist
DX: B18.2 Chronic viral hepatitis C (principal)

== ENCOUNTER → 2020-08-14 | Outpatient (CLI) | payer MEDICARE ==
[~2020-08-14] MED LIST changes: -AMIT25TA PO; +AMIT25TA17 PO; -LISI-538 PO; +LISI20TA33 PO; -LISI40TA PO; +LISI40TA4 PO
--- NOTE | 2020-08-19 07:44 | ECHO ---
DATE OF PROCEDURE: 08/14/2020 Age: 55 Gender: Male REFERRING PROVIDER: Pelon Vásquez DO. REASON FOR STUDY: Pedal edema. PATIENT LOCATION: Outpatient. 2D MEASUREMENTS: IVS 1.0 cm LVPW 1.0 cm LV 5.3 cm LA 3.5 cm Aortic root 2.8 cm IVC 1.1 cm DOPPLER MEASUREMENT Peak velocity across the aortic valve 1.9 m/s Peak velocity across the LVOT 1.4 m/s Peak gradient across the aortic valve 15 mmHg Mean gradient across the aortic valve 9 mmHg Mitral E 1.2 Mitral A 1.2 with a ratio of 1.1 2D COMMENTS: 1. Normal left ventricular size, wall thickness, and a normal global left ventricular systolic function with a hyperdynamic left ventricle. The estimated left ventricular systolic ejection fraction is 65 to 70%. 2. Normal left atrium. Normal right atrium and right ventricle. 3. The atrial septum appeared to be normal without evidence of defect or shunt. 4. Normal aortic root. 5. No pericardial effusion seen. 6. The aortic valve, mitral valve, and tricuspid valve as well as the pulmonic valve appear to be normal. The proximal pulmonary artery branches were not well visualized. 7. The inferior vena cava was normal in size, central venous pressure was most likely normal. DOPPLER: Only trace mitral regurgitation detected. Pulmonary artery systolic pressure is probably normal. IMPRESSION: 1. Normal global left ventricular systolic and diastolic function. 2. No significant valvular heart disease but trace mitral regurgitation. 3. No findings in this transthoracic echocardiogram that could explain the pedal edema. MTDD
== END ==
LOC: M CARPUL 11:24
PROVIDERS: ATTEND Hospitalist
DX: M79.89 Other specified soft tissue disorders (principal)

== ENCOUNTER → 2020-08-16 | Outpatient (CLI) | payer MEDICARE, MEDICAID ==
[2020-08-16 16:40] LABS: HEMATOCRIT 34.4 % (42.0-52.0); HEMOGLOBIN 10.9 g/dl (13.5-17.5); MEAN CORPUSCULAR HEMOGLOBIN 27.1 pg (27.0-33.0); MEAN CORPUSCULAR HGB CONC 31.7 g/dl (32.0-36.5); MEAN CORPUSCULAR VOLUME 85.6 fl (80.0-96.0); PLATELET COUNT, AUTOMATED 287 10^3/uL (150-450); RED BLOOD COUNT 4.02 10^6/uL (4.30-6.10); WHITE BLOOD COUNT 6.7 10^3/uL (4.0-10.0)
[2020-08-16 16:51] LABS: INR 0.94; PROTHROMBIN TIME 12.8 SECONDS (12.5-14.3)
[2020-08-16 17:08] LABS: ALBUMIN 3.7 GM/DL (3.2-5.2); ALT/SGPT 33 U/L (12-78); BILIRUBIN,TOTAL 0.3 MG/DL (0.2-1.0); BLOOD UREA NITROGEN 22 MG/DL (7-18); CALCIUM LEVEL 9.1 MG/DL (8.5-10.1); CARBON DIOXIDE LEVEL 33 MEQ/L (21-32); CHLORIDE LEVEL 95 MEQ/L (98-107); CREATININE FOR GFR 0.92 MG/DL (0.70-1.30); GLOMERULAR FILTRATION RATE > 60.0 (>56); GLUCOSE, FASTING 105 MG/DL (70-100); POTASSIUM SERUM 3.7 MEQ/L (3.5-5.1); SODIUM LEVEL 136 MEQ/L (136-145); TOTAL PROTEIN 6.9 GM/DL (6.4-8.2)
[2020-08-16 18:54] LABS: ERYTHROCYTE SEDIMENTATION RATE 47 mm/hr (0-20)
--- NOTE | 2020-08-16 19:43 | REP ---
INDICATION: LEFT KNEE OSTEOARTHRITIS/PRE-OP/LABS. COMPARISON: 12/06/2019 TECHNIQUE: Two views FINDINGS: Lung rosales are well inflated without infiltrate, effusion atelectasis or mass. No pulmonary nodule pleural thickening or apical scarring. The heart is not enlarged. The aorta and airway are intact. There is a dextroconvex curvature of the midthoracic spine. A C5-C7 anterior discectomy and fusion with disc spacers again seen. No compression deformity in the spine. No free air under the diaphragm. IMPRESSION: No acute cardiopulmonary change. <Electronically signed by Andrew Jaramillo > 08/16/201939
--- NOTE | 2020-08-16 20:29 | ECGEPIP ---
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
== END ==
LOC: M LAB 15:13
PROVIDERS: ATTEND Orthopaedic Surgery
DX: Z01.818 Encounter for other preprocedural examination (principal); M17.12 Unilateral primary osteoarthritis, left knee

== ENCOUNTER → 2020-08-16 | Outpatient (CLI) | payer MEDICARE | LOC: M LABSMTC 13:14 | PROVIDERS: ATTEND Anesthesiology | DX: Z01.812 Encounter for preprocedural laboratory examination (principal); Z20.822 Contact with and (suspected) exposure to COVID-19 ==

== ENCOUNTER 2020-09-14 17:20 | Emergency (ER) | payer MEDICAID, MEDICARE, OTHER ==
[~2020-09-14] VITALS: Ht 172.7 cm; Wt 100.0 kg
[2020-09-14] MEDS ORDERED: NS 1,000 ML IV ONE (17:30)
[2020-09-14 17:56] LABS: BASO # 0.1 10^3/uL (0.0-0.2); BASO % 0.7 % (0.0-1.0); EOS # 0.6 10^3/uL (0.0-0.5); EOS % 8.9 % (0.0-3.0); HEMATOCRIT 34.1 % (42.0-52.0); HEMOGLOBIN 11.2 g/dl (13.5-17.5); LYMPH # 1.8 10^3/uL (1.5-5.0); LYMPH % 26.6 % (24.0-44.0); MEAN CORPUSCULAR HEMOGLOBIN 27.7 pg (27.0-33.0); MEAN CORPUSCULAR HGB CONC 32.8 g/dl (32.0-36.5); MEAN CORPUSCULAR VOLUME 84.4 fl (80.0-96.0); MONO # 0.8 10^3/uL (0.0-0.8); MONO % 10.8 % (2.0-8.0); NEUTROPHILS # 3.7 10^3/uL (1.5-8.5); NEUTROPHILS % 52.7 % (36.0-66.0); PLATELET COUNT, AUTOMATED 283 10^3/uL (150-450); RED BLOOD COUNT 4.04 10^6/uL (4.30-6.10); WHITE BLOOD COUNT 6.9 10^3/uL (4.0-10.0)
[2020-09-14 18:21] LABS: ALBUMIN 3.9 GM/DL (3.2-5.2); ALT/SGPT 72 U/L (12-78); BILIRUBIN,TOTAL 0.5 MG/DL (0.2-1.0); BLOOD UREA NITROGEN 26 MG/DL (7-18); CALCIUM LEVEL 8.9 MG/DL (8.5-10.1); CARBON DIOXIDE LEVEL 31 MEQ/L (21-32); CHLORIDE LEVEL 97 MEQ/L (98-107); CREATININE FOR GFR 1.17 MG/DL (0.70-1.30); ETHYL ALCOHOL (ETHANOL) < 0.003 % (0.000-0.010); GLOMERULAR FILTRATION RATE > 60.0 (>56); GLUCOSE, FASTING 82 MG/DL (70-100); POTASSIUM SERUM 3.9 MEQ/L (3.5-5.1); SODIUM LEVEL 134 MEQ/L (136-145)
[2020-09-14] MEDS ORDERED: ISOVUE-370 76% 100ML VIAL As Ordered ONE (18:39)
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
[2020-09-14 19:23] LABS: APPEARANCE, URINE CLEAR (CLEAR); BACTERIA, URINE AUTO NEGATIVE (NEGATIVE); BILIRUBIN, URINE AUTO NEGATIVE (NEGATIVE); BLOOD, URINE BLOOD NEGATIVE (NEGATIVE); COLOR, URINE STRAW (YELLOW); GLUCOSE, URINE (UA) AUTO NEGATIVE (NEGATIVE); KETONE, URINE AUTO NEGATIVE (NEGATIVE); LEUKOCYTE ESTERASE, URINE AUTO NEGATIVE (NEGATIVE); NITRITE, URINE AUTO NEGATIVE (NEGATIVE); PROTEIN, URINE AUTO NEGATIVE (NEGATIVE); RBC, URINE AUTO 0 /HPF (0-3); SQUAMOUS EPITHELIAL CELL UR AU 0 /HPF (0-6); UROBILINOGEN, URINE AUTO 0.2 mg/dL (0.0-2.0); WBC, URINE AUTO 0 /HPF (0-3)
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
[2020-09-14 19:44] LABS: AMPHETAMINES LEVEL URINE POSITIVE (NEGATIVE); BARBITURATES URINE NEGATIVE (NEGATIVE); BENZODIAZEPINES URINE NEGATIVE (NEGATIVE); CANNABINOIDS URINE NEGATIVE (NEGATIVE); COCAINE METABOLITE URINE NEGATIVE (NEGATIVE); METHADONE URINE NEGATIVE (NEGATIVE); OPIATES URINE POSITIVE (NEGATIVE); PHENCYCLIDINE URINE NEGATIVE (NEGATIVE)
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
[2020-09-14 21:00] VITALS: BP 140/89
--- NOTE | 2020-09-15 08:20 | ECGEPIP ---
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
--- NOTE | 2020-09-16 13:26 | ED PDOC ---
Post-Departure Follow-Up ct chest and ct abd/p faxed to dr gaytan for fu Fernanda Esparza MD Sep 16, 2020 13:26
== END 2020-09-14 21:15 | disposition home or self-care (01) ==
LOC: M ED 17:20 → EDBD 17:20 → M ED 21:15
DX: Z04.1 Encounter for examination and observation following transport accident (principal); V47.5XXA Car driver injured in collision with fixed or stationary object in traffic accident, initial encounter; F19.10 Other psychoactive substance abuse, uncomplicated; R94.6 Abnormal results of thyroid function studies; G89.29 Other chronic pain; M25.562 Pain in left knee; M50.30 Other cervical disc degeneration, unspecified cervical region; R16.1 Splenomegaly, not elsewhere classified; I77.810 Thoracic aortic ectasia; B19.20 Unspecified viral hepatitis C without hepatic coma; F17.200 Nicotine dependence, unspecified, uncomplicated; Z79.899 Other long term (current) drug therapy
CPT/HCPCS: 70450; 71260; 72125; 74177; 80047; 80053; 80307; 81001; 82077; 83605; 84443; 85025; 93005; 93041; 96360; 99285; Q9967

== ENCOUNTER → 2020-10-30 | Outpatient (CLI) | payer OTHER, MEDICAID ==
[~2020-10-30] MED LIST changes: +GABA-283 PO; -GABA-845 PO
--- NOTE | 2020-10-30 15:54 | REP ---
INDICATION: PAIN IN LEFT LEG. COMPARISON: None. TECHNIQUE: Multiple ultrasonographic images of the deep venous structures of the left thigh were obtained from the common femoral vein to the popliteal vein along with Doppler interrogation and color flow Doppler images. FINDINGS: There is no abnormal echogenic material seen within any of the visualized deep venous structures that would suggest acute thrombosis. Coaptation is unremarkable throughout. Doppler interrogation shows an expected response to respiratory variability and augmentation. The color flow images show what appears to be a normal vascular pattern throughout. IMPRESSION: There is no ultrasonographic evidence of deep venous thrombosis involving any of the visualized deep venous structures of the left thigh, as described above. <Electronically signed by Federico David > 10/30/20 0423
== END ==
LOC: M RAD 15:01
PROVIDERS: ATTEND Physician Assistant
DX: M79.605 Pain in left leg (principal)

== ENCOUNTER 2020-12-16 12:33 | Observation (INO) | payer OTHER, MEDICAID ==
[~2020-12-16] VITALS: Ht 165.1 cm; Wt 98.3 kg
--- NOTE | 2020-12-16 13:05 | REP ---
INDICATION: CHEST PAIN. COMPARISON: 08/16/2020. TECHNIQUE: Single portable AP view of the chest was performed. FINDINGS: There is no acute infiltrate or pulmonary edema. Lungs are clear. The heart is not significantly enlarged. There is calcification of the thoracic aorta. The mediastinal silhouette is unchanged.. The visualized osseous structures are intact. Metallic plate and screws are seen in the lower cervical spine. IMPRESSION: No acute pulmonary disease. <Electronically signed by Shawn Wallace > 12/16/20 [id number]
[2020-12-16 13:25] LABS: BASO # 0.1 10^3/uL (0.0-0.2); BASO % 0.4 % (0.0-1.0); EOS # 0.1 10^3/uL (0.0-0.5); EOS % 0.8 % (0.0-3.0); HEMATOCRIT 41.1 % (42.0-52.0); HEMOGLOBIN 13.5 g/dl (13.5-17.5); LYMPH # 2.4 10^3/uL (1.5-5.0); LYMPH % 14.8 % (24.0-44.0); MEAN CORPUSCULAR HEMOGLOBIN 26.6 pg (27.0-33.0); MEAN CORPUSCULAR HGB CONC 32.8 g/dl (32.0-36.5); MEAN CORPUSCULAR VOLUME 80.9 fl (80.0-96.0); MONO # 1.3 10^3/uL (0.0-0.8); MONO % 8.2 % (2.0-8.0); RED BLOOD COUNT 5.08 10^6/uL (4.30-6.10); WHITE BLOOD COUNT 15.9 10^3/uL (4.0-10.0)
[2020-12-16 13:33] LABS: NEUTROPHILS % 75.4 % (36.0-66.0)
[2020-12-16] MEDS ORDERED: NITROGLYCERIN 0.4 MG SUBL TABLET SL PRN (13:55)
[2020-12-16] MEDS ORDERED: MORPHINE 2 MG/ML 1ML VIAL (J2270) IV PRN (13:55)
[2020-12-16 13:59] LABS: BLOOD UREA NITROGEN 38 MG/DL (7-18); CALCIUM LEVEL 9.4 MG/DL (8.5-10.1); CARBON DIOXIDE LEVEL 21 MEQ/L (21-32); CHLORIDE LEVEL 98 MEQ/L (98-107); CK-MB VALUE MASS 4.5 NG/ML (<3.6); CPK CREATINE PHOSPHOKINASE 172 U/L (39-308); GLUCOSE, FASTING 112 MG/DL (70-100); MB/CK RELATIVE INDEX 2.62 (< OR =4); POTASSIUM SERUM 3.5 MEQ/L (3.5-5.1); SODIUM LEVEL 133 MEQ/L (136-145); TROPONIN I 0.02 NG/ML (< 0.10)
[2020-12-16] MEDS ORDERED: NS 1,000 ML IV ONE ×3 (14:00→19:25)
[2020-12-16 14:46] LABS: ALT/SGPT 28 U/L (12-78); BILIRUBIN,DIRECT 0.1 MG/DL (0.0-0.2); BILIRUBIN,TOTAL 0.7 MG/DL (0.2-1.0); ETHYL ALCOHOL (ETHANOL) < 0.003 % (0.000-0.010); LIPASE 174 U/L (73-393); TOTAL PROTEIN 7.9 GM/DL (6.4-8.2)
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
--- NOTE | 2020-12-16 15:48 | ECGEPIP ---
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
--- NOTE | 2020-12-16 15:50 | ECGEPIP ---
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
[2020-12-16 16:21] LABS: ACETAMINOPHEN LEVEL < 2.0 UG/ML (10.0-30.0); C REACTIVE PROTEIN QUANTITATIV 1.52 MG/DL (0.00-0.30); ETHYL ALCOHOL (ETHANOL) < 0.003 % (0.000-0.010); SALICYLATE LEVEL 2.7 MG/DL (5.0-30.0)
[2020-12-16 19:14] LABS: CK-MB VALUE MASS 5.5 NG/ML (<3.6); CPK CREATINE PHOSPHOKINASE 136 U/L (39-308); MB/CK RELATIVE INDEX 4.04 (< OR =4); TROPONIN I < 0.02 NG/ML (< 0.10)
[2020-12-16] MEDS ORDERED: MAALOX 30 ML SUSP *UDC PO PRN (19:35)
[2020-12-16] MEDS: NS 1,000 ML IV SCH (19:35)
[2020-12-16] MEDS ORDERED: MOM 30ML SUSPENSION UDC PO PRN (19:35)
[2020-12-16] MEDS ORDERED: ACETAMINOPHEN TAB 650MG DOSE (2X325MG) PO PRN (19:35)
[2020-12-16] MEDS ORDERED: **hydrALAZINE** 10 MG TAB PO PRN (20:45)
[2020-12-16 21:08] LABS: PHOSPHORUS LEVEL 3.8 MG/DL (2.5-4.9)
[2020-12-16 21:09] LABS: AMPHETAMINES LEVEL URINE NEGATIVE (NEGATIVE); BARBITURATES URINE NEGATIVE (NEGATIVE); BENZODIAZEPINES URINE NEGATIVE (NEGATIVE); CANNABINOIDS URINE POSITIVE (NEGATIVE); COCAINE METABOLITE URINE NEGATIVE (NEGATIVE); METHADONE URINE NEGATIVE (NEGATIVE); OPIATES URINE POSITIVE (NEGATIVE); PHENCYCLIDINE URINE NEGATIVE (NEGATIVE)
[2020-12-16 21:10] LABS: TOTAL PROTEIN,RANDOM URINE 77.3 MG/DL (0.0-12.0)
[2020-12-16] MEDS ORDERED: LABETALOL 100MG/20ML VIAL IV PRN (21:10)
--- NOTE | 2020-12-16 21:14 | HPEPDOC ---
[facility] Medical History & Physical Date of Admission Dec 16, 2020 Date of Service: Dec 16, 2020 Primary Care Physician: Ellie Blank DO Attending Physician: BRITNEY ONTIVEROS MD History and Physical TIME OF SERVICE: 748PM CHIEF COMPLAINT: chest pain HISTORY OF PRESENT ILLNESS: has been under a lot of stress lately; he hasnt taken his meds for 2 days & used heroin yesterday which he added was a bad day because it was . This morning he had an episode of new onset mid 01/04 in severity chest pain that lasted for 10 min and was associated with left arm pain. He denied having shortness of breath, runny nose, cough, leg swelling or back pain. 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 HOME MEDICATIONS: Please see below. PHYSICAL EXAMINATION: Vital Signs Date Time Temp Pulse Resp B/P (MAP) Pulse Ox O2 Delivery O2 Flow Rate FiO2 12/16/20 12:51 194/93 (126) 12/16/20 13:03 83 20 100 Room Air 12/16/20 15:17 97.1 GENERAL APPEARANCE: well nourished and developed / anxious HEENT: EOMI / MMM&P CARDIOVASCULAR: RRR/NMRG / no LE edema / chest pain is not reproducible with palpation of the chest LUNGS: CTAB on RA ABDOMEN: contour convex MUSCULOSKELETAL: NCAT / ROMIx 4 INTEGUMENT: slightly flushed NEUROLOGICAL: CN 2-12 intact / speech not dysarthric PSYCHIATRIC: A&O x3/ able to understand and follow all commands LABORATORY DATA: IMAGING: Chest xray No acute pulmonary disease. MICROBIOLOGY: respiratory panel neg ECG: (personally visualized): NSR, there were some artifacts but no acute ST changes ASSESSMENT: is a 55 yr old w essential HTN and polysubstance abuse who is admitted for evaluation of chest pain, HTN emergency and GUILLERMO. PLAN: 1 Chest pain Likely due to a combination of psychosocial stressors, heroin &, skipping meds causing HTN Urgency. Based on his presentation the [facility] chest pain rule recommends standard evaluation; therefore we will admit him to r/o ACS. His ECG & 2 troponins are unrevealing; Echo Jul 2020: "IMPRESSION: 1. Normal global left ventricular systolic and diastolic function. 2. No significant valvular heart disease but trace mitral regurgitation. 3. No findings in this transthoracic echocardiogram that could explain the pedal edema." Plan: admit to medical floor / telemetry / CT chest w/o contrast (to screen for dissection)/ f/u 1 more troponin / resume BP meds / smoking cessation education / can f/u w PCP to discuss stress mitigation strategies 2 HTN Emergency -Diagnosis based on his SBP >180 with symptoms (chest pain) and the presence of end organ damage (elevated Cr). -Triggers are likely the same variables listed above Plan: IV labetalol now / will aim to lower BP by 25% w/in the first 2-4 hours with target BP of <160/100 / avoid excessive environmental stimuli / resume amlodipine & add hydralazine PRN for SBP >160 / ACEI and diuretic on hold bc of elevated BP/ low salt diet / he can f/u with his PCP to discuss lifestyle modifications to control his BP (ie, managing stress, diet, weight loss & exercise) 3 GUILLERMO Likely caused by uncontrolled HTN Plan: monitor UOP / IVF / f/u renal panel, PTH, Uric acid, Phosph, & Ulytes for FENa or FEUrea / renal US / hold nephrotoxic drugs 4 Leucocytosis Likely reactive due to factors listed in #1 5 Tobacco Abuse Plan: smoking cessation education 6 Obesity Complicates care DVT px w SCDs ([place] score = 2 = pharmacological px not indicated) Dispo: home after at least 2 midnights stay Home Medications Scheduled Amlodipine Besylate (Norvasc) 10 Mg Tablet, 10 MG PO DAILY Atorvastatin Calcium (Atorvastatin Calcium) 10 Mg Tablet, 80 MG PO DAILY Chlorthalidone (Chlorthalidone) 25 Mg Tablet, 12.5 MG PO DAILY Gabapentin (Gabapentin) 800 Mg Tablet, 800 MG PO TID Lisinopril (Lisinopril) 40 Mg Tablet, 40 MG PO DAILY Allergies Coded Allergies: No Known Allergies (Verified , 08/16/20) A-FIB/CHADSVASC A-FIB History Current/History of A-Fib/PAF?: No Current PO Anticoag Therapy: No BRITNEY ONTIVEROS MD Dec 16, 2020 21:14
[2020-12-16 21:21] LABS: PTH INTACT 108.7 PG/ML (18.5-88.0)
[2020-12-16] MEDS: GABAPENTIN 400MG CAP PO SCH (22:09)
--- NOTE | 2020-12-16 23:07 | REPVR ---
PROCEDURE INFORMATION: Exam: CT Chest Without Contrast; Diagnostic Exam date and time: 12/16/2020 9:23 PM Age: 55 years old Clinical indication: Pain; Radiating; Additional info: Chest pain /bp >180/100 / CR 2 / screen for dissection? TECHNIQUE: Imaging protocol: Diagnostic computed tomography of the chest without contrast. 3D rendering (Not supervised by radiologist): MIP and/or 3D reconstructed images were created by the technologist. Radiation optimization: All CT scans at this facility use at least one of these dose optimization techniques: automated exposure control; mA and/or kV adjustment per patient size (includes targeted exams where dose is matched to clinical indication); or iterative reconstruction. COMPARISON: CT Chest with contrast 09/14/2020 6:54 PM FINDINGS: Lungs: Pulmonary vascular/interstitial pattern does not suggest active pulmonary edema. No suspicious lung mass or air space process. No central endobronchial lesion. Pleural spaces: No pleural effusion or pneumothorax. Heart: No overt cardiac enlargement or abnormal volume of pericardial fluid. Aorta: Thoracic aorta is ectatic and mildly atherosclerotic. Great vessels off aortic arch: Atherosclerotic calcifications in the coronary vessels. Lymph nodes: No enlarged mediastinal lymph nodes. Gallbladder and bile ducts: Gallbladder is surgically absent. Adrenal glands: Adrenal glands are normal in appearance. Bones/joints: Multi-level, age-related thoracic degenerative disc disease is present. Old, healed bilateral rib fractures are present. Deformity of the sternum with parasternal soft tissue edema and osseous resorption, new since September 14, 2020. Exam limitations: Limited evaluation without IV contrast. Also limited by motion. IMPRESSION: 1. 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 2. Differential consideration would include subacute trauma although the appearance is more suggestive of an inflammatory or infectious process Electronically signed by: Willy Gay On 12/16/2020 23:06:59 PM
[2020-12-17 06:28] LABS: HEMATOCRIT 34.7 % (42.0-52.0); MEAN CORPUSCULAR HEMOGLOBIN 26.9 pg (27.0-33.0); MEAN CORPUSCULAR HGB CONC 32.9 g/dl (32.0-36.5); MEAN CORPUSCULAR VOLUME 81.8 fl (80.0-96.0); PLATELET COUNT, AUTOMATED 264 10^3/uL (150-450); RED BLOOD COUNT 4.24 10^6/uL (4.30-6.10); WHITE BLOOD COUNT 10.6 10^3/uL (4.0-10.0)
[2020-12-17 06:30] LABS: HEMOGLOBIN 11.4 g/dl (13.5-17.5)
[2020-12-17 06:45] LABS: CALCIUM LEVEL 8.1 MG/DL (8.5-10.1); CREATININE FOR GFR 1.6 MG/DL (0.70-1.30); GLOMERULAR FILTRATION RATE 47.7 (>56)
[2020-12-17] MEDS: NS 1,000 ML IV SCH ×2 (07:03→17:23)
--- NOTE | 2020-12-17 07:56 | ECGEPIP ---
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
--- NOTE | 2020-12-17 07:58 | REP ---
INDICATION: GUILLERMO. COMPARISON: Comparison CT study September 14, 2020.. TECHNIQUE: Urinary tract sonography. FINDINGS: Scanning at the level of the urinary bladder shows no abnormality. Renal cortical echogenicity pattern is normal bilaterally and contours are smooth. There is no evidence of hydronephrosis, cyst, mass, or calculus in either kidney. The right kidney measures 10.5 x 5.8 x 5.0 cm. Left renal dimensions are 11.2 x 4.7 x 5.7 cm. IMPRESSION: Normal urinary tract sonography. <Electronically signed by Gurdeep Riddle > 12/17/20 0757
[2020-12-17] MEDS ORDERED: LORazepam 2 MG TAB PO PRN (08:25)
[2020-12-17] MEDS ORDERED: FOLIC ACID 1 MG TAB PO SCH (09:00)
[2020-12-17] MEDS ORDERED: MULTIVITAMINS/MINERALS THERAP 1 TAB PO SCH (09:00)
[2020-12-17] MEDS ORDERED: POTASSIUM CHLORIDE 10 MEQ SR TABLET PO ONE (09:00)
[2020-12-17] MEDS ORDERED: ATORVASTATIN 10 MG TAB PO SCH (09:00)
[2020-12-17] MEDS ORDERED: THIAMINE 100 MG TAB PO SCH (09:00)
[2020-12-17] MEDS ORDERED: ENOXAPARIN 40MG/0.4ML SYRINGE (J1650 PER 10MG) SC SCH (09:00)
[2020-12-17 09:36] LABS: MAGNESIUM LEVEL 2.5 MG/DL (1.8-2.4)
[2020-12-17] MEDS: GABAPENTIN 400MG CAP PO SCH ×2 (10:11→17:22)
--- NOTE | 2020-12-17 10:19 | RO ---
OPERATIVE NOTE DATE OF OPERATION: 12/16/2020 PREOPERATIVE DIAGNOSIS: Poor IV access. POSTOPERATIVE DIAGNOSIS: Poor IV access. PROCEDURE: Attempted right internal jugular central line placement under ultrasound guidance followed by placement of right femoral central line with ultrasound guidance, interpretation and review of ultrasound. SURGEON: Shawn Carlin DO BRASS PICKLER: None. ANESTHESIA: 1% Lidocaine local. COMPLICATIONS: Unable to pass guidewire through the internal jugular vein. INDICATIONS: The patient is a 55-year-old male who presented to the emergency room for acute chest pain. They were unable to get any IV access after multiple attempts. Recommendation was to place a central line. Risks and benefits of procedure not limited to but including bleeding, infection, damage to surrounding structures, pneumothorax were discussed in detail with the patient and informed consent was obtained and procedure was planned. DESCRIPTION OF PROCEDURE: The patient's right neck was examined with ultrasound. There was a large internal jugular vein easily identifiable. The right neck was then prepped and draped with Chlorhexidine. Under ultrasound guidance the skin and subcutaneous tissue overlying the vessel were injected with local followed by insertion of cannulation needle into the internal jugular vein under direct vision. Once that was completed the guidewire was passed into the needle but it got stuck inside the vessel and would not advance. After multiple attempts to reposition the needle I was unable to get the wire to advance. Wire and needle were both removed. Two more attempts were then made to the same vessel. Again I was able to get blood and good flow into the syringe. However, the wire would not advance. After that the needle was removed. Dressing was placed. The right groin was then examined with ultrasound, again identifying an easy vessel. Same process was then completed. The area was prepped and draped, Lidocaine was injected into skin and subcutaneous tissue. Cannulation needle was then inserted, one stick with easy access to the vein. Once the vein was punctured guidewire passed freely. 11-blade scalpel was used to make a small skin incision at the base of the needle, needle was removed, dilator was passed over top of the guidewire. Once the dilator was removed the triple lumen catheter was passed over top of the guidewire into the vessel with minimal resistance. Once the catheter was in place the wire was removed. All three ports were flushed, capped. The silk suture was used to suture the catheter in place in the groin and sterile dressing was applied and this ended the procedure. Once this was completed a chest x-ray was done to confirm that there was no pneumothorax from the attempted IJ catheter placement. The film was reviewed with no signs of any pneumothorax identified. The patient was stable and catheter in the right groin was able to be used.
[2020-12-17 11:36] VITALS: BP 150/80
[2020-12-17 12:30] VITALS: BP 151/80
[2020-12-17 12:36] LABS: C REACTIVE PROTEIN QUANTITATIV 1.92 MG/DL (0.00-0.30)
[2020-12-17] MEDS: **hydrALAZINE HCL** 25 MG TAB PO SCH ×2 (12:40→17:23)
[2020-12-17 12:45] VITALS: BP 156/98
[2020-12-17 13:01] VITALS: BP 156/98
[2020-12-17 14:07] LABS: ERYTHROCYTE SEDIMENTATION RATE 24 mm/hr (0-20)
[2020-12-17 15:49] VITALS: BP 168/90
[2020-12-17 17:23] VITALS: BP 158/76
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
[2020-12-17] MEDS ORDERED: HYDR25TA PO (18:54)
[2020-12-17 19:17] LABS: BASO # 0.1 10^3/uL (0.0-0.2); BASO % 0.7 % (0.0-1.0); EOS # 0.3 10^3/uL (0.0-0.5); EOS % 2.9 % (0.0-3.0); LYMPH # 2.2 10^3/uL (1.5-5.0); LYMPH % 20.4 % (24.0-44.0); MONO % 9.7 % (2.0-8.0)
--- NOTE | 2020-12-17 19:24 | DS.PDOC ---
Discharge Summary General Date of Admission Dec 16, 2020 at 12:34 Date of Discharge 12/17/2020 Primary Care Physician: RAHUL BARKER DO Attending Physician: INGE RIVERA MD Discharge Summary PROCEDURES PERFORMED DURING STAY: Right femoral central line placement. ADMITTING DIAGNOSES: Hypertensive emergency Acute kidney injury Dyslipidemia History of drug use History of alcohol use disorder Chronic knee osteoarthritis DISCHARGE DIAGNOSES: Hypertensive emergency Acute kidney injury Dyslipidemia History of drug use History of alcohol use disorder Chronic knee osteoarthritis COMPLICATIONS/CHIEF COMPLAINT: Acute Kidney Injury, Chest Pain. HISTORY OF PRESENT ILLNESS: Patient is a 55-year-old male with a past medical history of IV drug use, hepatitis C (treated by Zi) who presents with chest pain 7 out of 10 severity that lasted for 10 minutes and was associated with left arm pain. Patient denied any shortness of breath, runny nose, cough, swelling of the legs or back pain. Patient stated that he had not taken his medications for the past 2 days and used heroin on 12/15/2020. HOSPITAL COURSE: Upon admission, patient had poor IV access therefore general surgery was consulted and patient had right femoral line placement. Patient's urine toxicology screen was positive for cannabinoids and opiates. Blood cultures were drawn due to patient's leukocytosis upon admission (15.9) and recent of IV drug use. Given patient's alcohol use history patient received thiamine 100 mg once, folic acid 1 mg once, multivitamin 1 tablet once, and due to hypokalemia at 3.0, patient received 40 mEq of potassium chloride once. CIWA protocol was placed. Patient was placed on hydralazine 25 mg every 6 hours and amlodipine 10 mg daily due to patient's concurrent GUILLERMO. Patient's creatinine level was 2.2 upon admission. He was given IV sodium chloride for rehydration and treatment of the GUILLERMO. Patient's home chlorthalidone and lisinopril were held due to the GUILLERMO. Patient's intake and output, daily weights, basic metabolic profile, CBC with differential were all monitored throughout the stay. Patient's home medication, gabapentin was continued and patient received 1 dose. Upon admission the patient's white blood cell count was 15.9 which decreased to 10.6 the next day without antibiotic administration. Patient's chest CT without contrast showed possible osteomyelitis of the sternum and therefore infectious disease was consulted. Echocardiogram was ordered. Before infectious disease consulted physician could see the patient, the patient left AMA. Patient's home medication atorvastatin 80 mg was scheduled to be administered but was not due to patient's AMA departure. DISCHARGE MEDICATIONS: Please see below. ALLERGIES: Please see below. PHYSICAL EXAMINATION ON DISCHARGE: VITAL SIGNS: Please see below. GENERAL: Patient is in no acute distress, he is lying comfortably in bed. HEENT: Normocephalic/atraumatic, no scleral icterus, EOMI, nares patent, oropharyngeal mucosa moist CARDIOVASCULAR: Regular rate and rhythm. Systolic murmur, 3 out of 6 heard best at the tricuspid area. RESPIRATORY: Clear to auscultation bilaterally. No wheezes, rales, or rhonchi ABDOMINAL: Soft, nondistended, nontender, bowel sounds present. EXTREMITIES: Radial and pedal pulses appreciated and bounding. No cyanosis, clubbing, Lovell spots, Osler nodes present. Small ecchymoses approximately 3 mm in diameter present in bilateral bicipital antecubital regions, no erythema appreciated of bilateral knees at this time. PSYCHOLOGICAL: Affect full and open LABORATORY DATA: Please see below. IMAGING: Renal ultrasound, 12/17/2020: Normal urinary tract sonography Chest x-ray, 12/16/2020: No acute pulmonary disease Chest CT without contrast, 12/16/2020 1. 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 2. Differential consideration would include subacute trauma although the appearance is more suggestive of an inflammatory or infectious process. PROGNOSIS: Unstable in the setting of AMA departure and medical noncompliance and active history of drug use. ACTIVITY: As tolerated. DIET: 2 g sodium and renal diet DISPOSITION: Patient is leaving AMA. DISCHARGE INSTRUCTIONS: Please continue hydralazine 25 mg every 6 hours, 14-day supply has been sent to patient's pharmacy. Please follow-up with PCP in order to bridge antihypertensive medication back to lisinopril and chlorthalidone and to discontinue hydralazine. Please follow-up for labs to assess for kidney function. Please continue amlodipine 10 mg daily. Please follow-up with PCP to assess possible sternal osteomyelitis. Patient was given instructions to present back to the emergency department if symptoms worsen or remain the same and do not improve. Patient verbalized understanding. Patient had a recent femoral central line that was removed and PCP follow-up is required. DISCHARGE CONDITION: Unstable, patient left AMA and noncompliant on medications. TIME SPENT ON DISCHARGE: 36 minutes. Vital Signs/I&Os Vital Signs Date Time Temp Pulse Resp B/P (MAP) Pulse Ox O2 Delivery O2 Flow Rate FiO2 12/17/20 17:23 158/76 12/17/20 15:49 83 12/17/20 12:45 99.8 18 95 Room Air Laboratory Data Labs 24H Laboratory Tests 2 12/16/20 20:17: Urine Osmolality 646, Urine Random Creatinine 282.0, Urine Random Total Protein 77.3H, Urine Random Potassium 52.0, Uric Acid 9.5H, Phosphorus Level 3.8, Parathyroid Hormone (Intact) 108.7H, Urine Opiates Screen POSITIVEH, Urine Met hadone Screen NEGATIVE, Urine Barbiturates Screen NEGATIVE, Urine Phencyclidine Screen NEGATIVE, Urine Amphetamines Screen NEGATIVE, Urine Benzodiazepines Screen NEGATIVE, Urine Cocaine Metabolite Screen NEGATIVE, Urine Cannabinoids Screen POSITIVEH 12/16/20 23:44: Troponin I < 0.02 12/17/20 06:12: Nucleated Red Blood Cells % (auto) 0.0, Erythrocyte Sedimentation Rate 24H, Anion Gap 7L, Glomerular Filtration Rate 47.7L, Calcium Level 8.1L, Magnesium Level 2.5H, C-Reactive Protein, Quantitative 1.92H CBC/BMP Laboratory Tests 12/17/20 06:12 Microbiology Microbiology 12/16/20 Respiratory Virus Panel (PCR) (NAIN) - Final, Complete 12/16/20 Blood Culture - Preliminary, Resulted No growth after 24 hours . All specim... 12/16/20 Blood Culture - Preliminary, Resulted No growth after 24 hours . All specim... Discharge Medications Scheduled Amlodipine Besylate (Norvasc) 10 Mg Tablet, 10 MG PO DAILY, (Reported) Atorvastatin Calcium (Atorvastatin Calcium) 10 Mg Tablet, 80 MG PO DAILY, ( Reported) Gabapentin (Gabapentin) 800 Mg Tablet, 800 MG PO TID, (Reported) Hydralazine HCl (Hydralazine HCl) 25 Mg Tablet, 25 MG PO Q6H Allergies Coded Allergies: No Known Allergies (Verified , 08/16/20) GME ATTESTATION GME ATTESTATION My faculty preceptor for this patient encounter was physically present during the encounter and was fully available. All aspects of the patient interview, examination, medical decision making process, and medical care plan development were reviewed and approved by the faculty preceptor. The faculty preceptor is aware and concurs with the plan as stated in the body of this note and will attest to such by his/her cosignature. ATTENDING NOTE Mr. Wheat unfortunately decided to signout AMA this evening after he felt better. He unfortunately had an improving but not yet resolved GUILLERMO and BP was only beginning to normalize after adding q6 hydralazine on holding ACEi and HCTZ i/s/o an GUILLERMO. We would have liked to continue hydration for the prerenal GUILLERMO so that may restart his once daily meds of ACEi and HCTZ but had to discharge him on q6H hydralazine, in addition to his baseline amlodpine with hope that he fo llows promptly with PCP for a BMP check and eventually transition back to his regimen of amlodipine/lisinopril/HCTZ that are all dosed once a day. Wallace Lau DO Dec 17, 2020 19:24 INGE RIVERA MD Dec 17, 2020 23:49
[2020-12-18] MEDS ORDERED: ATORVASTATIN 20 MG TAB PO SCH (09:00)
[2020-12-18] MEDS ORDERED: HYDR-3910 PO (11:52)
--- NOTE | 2020-12-20 07:21 | ECHO ---
ECHOCARDIOGRAM DATE OF PROCEDURE: 12/17/2020 Age: 55 Gender: M Height: 163 cm Weight: 97 kg REFERRING PHYSICIAN: Dr. Wallace Lau INDICATION: Chest pain, unspecified MEASUREMENTS: 2D Measurements: Aortic root: 3.1 cm Left atrium: 3.7 cm Interventricular septum: 1.14 cm Posterior wall: 1.05 cm Left ventricle diastole: 3.9 cm Proximal ascending aorta: 3.6 cm Inferior vena cava: 1.5 cm (more than 50% respiratory variation) Doppler Measurements: Aortic valve velocity: 140 cm/s LVOT velocity: 113 cm/s LVOT VTI: 20.8 cm Mitral E velocity: 74.4 cm/s Mitral A velocity: 105 cm/s Mitral deceleration time: 272 ms Pulmonary acceleration time: 114 ms MITRAL ANNULAR TISSUE DOPPLER E prime septal: 7.7 cm/s E prime lateral: 7.4 cm/s DESCRIPTION: Rhythm was sinus. Image quality was fair. This was a 2D, M-mode, color flow Doppler, and pulsed-wave Doppler examination including mitral annular tissue Doppler. CONCLUSIONS: 1. Mildly hyperdynamic left ventricular (LV) systolic function. Left ventricular ejection fraction (LVEF) 70% by visual estimate. Normal left ventricle internal dimensions and wall thickness. No regional left ventricular (LV) wall motion abnormalities. Grade 1 left ventricular (LV) diastolic dysfunction. 2. No pericardial effusion. 3. Mild aortic valve sclerosis of A3-cuspid aortic valve. No aortic regurgitation. 4. Otherwise normal-appearing echocardiogram Doppler findings.
== END 2020-12-17 18:45 | disposition left against medical advice (07) ==
LOC: M ED 12:33 → M ED INP 12:34 → M MSPAV 12-17 12:45
PROVIDERS: ADMIT Internal Medicine; ATTEND Internal Medicine
DX: I16.0 Hypertensive urgency (principal); Z53.29 Procedure and treatment not carried out because of patient's decision for other reasons; N17.9 Acute kidney failure, unspecified; R07.89 Other chest pain; E78.49 Other hyperlipidemia; D72.829 Elevated white blood cell count, unspecified; E87.6 Hypokalemia; E66.9 Obesity, unspecified; F12.10 Cannabis abuse, uncomplicated; F11.10 Opioid abuse, uncomplicated; F17.218 Nicotine dependence, cigarettes, with other nicotine-induced disorders; Z79.899 Other long term (current) drug therapy
CPT/HCPCS: 71045; 71250; 76775; 80048; 80076; 80143; 80307; 82077; 82550; 82553; 82570; 83605; 83690; 83735; 83935; 83970; 84100; 84133; 84156; 84484; 84550; 85025; 85027; 85379; 85652; 86140; 87040; 87798; 93005; 93041; 93306; 94760; 96360; 96361; 99285; G0378

== ENCOUNTER 2020-12-18 10:25 | Inpatient (IN) | payer OTHER, MEDICAID ==
[2020-12-18] VITALS (23 sets, daily range): BP systolic 117–235; BP diastolic 68–124
[~2020-12-18] VITALS: Ht 165.1 cm; Wt 106.1 kg
[~2020-12-18 10:25] MED LIST changes: +HYDR25TA PO; +MULTIVITAMINS/MINERALS THERAP 1 TAB PO SCH
[2020-12-18 10:59] LABS: BASO # 0.1 10^3/uL (0.0-0.2); BASO % 0.5 % (0.0-1.0); EOS # 0.3 10^3/uL (0.0-0.5); EOS % 2.5 % (0.0-3.0); HEMATOCRIT 34.1 % (42.0-52.0); HEMOGLOBIN 10.9 g/dl (13.5-17.5); LYMPH # 2.6 10^3/uL (1.5-5.0); MEAN CORPUSCULAR HEMOGLOBIN 26.8 pg (27.0-33.0); MEAN CORPUSCULAR VOLUME 83.8 fl (80.0-96.0); MONO % 8.3 % (2.0-8.0); NEUTROPHILS # 7.7 10^3/uL (1.5-8.5); NEUTROPHILS % 66.2 % (36.0-66.0); PLATELET COUNT, AUTOMATED 268 10^3/uL (150-450); RED BLOOD COUNT 4.07 10^6/uL (4.30-6.10); WHITE BLOOD COUNT 11.6 10^3/uL (4.0-10.0)
--- NOTE | 2020-12-18 11:01 | REP ---
INDICATION: CHEST PAIN. COMPARISON: 12/16/2020 FINDINGS: The technique utilized in obtaining the radiograph has magnified the cardiac silhouette and accentuated the interstitial markings. The superior mediastinal structures are midline. The cardiac silhouette is unremarkable in size, shape, and position. The diaphragmatic surfaces of the lungs are regular, and the costophrenic angles are clear. The pulmonary rosales are clear. The imaged osseous structures are intact. IMPRESSION: There is no acute cardiopulmonary disease. No significant change from the prior exam. <Electronically signed by Federico David > 12/18/20 [id number]
[2020-12-18 11:32] LABS: BLOOD UREA NITROGEN 21 MG/DL (7-18); CALCIUM LEVEL 8.2 MG/DL (8.5-10.1); CARBON DIOXIDE LEVEL 25 MEQ/L (21-32); CHLORIDE LEVEL 107 MEQ/L (98-107); CREATININE FOR GFR 1.18 MG/DL (0.70-1.30); ETHYL ALCOHOL (ETHANOL) < 0.003 % (0.000-0.010); GLOMERULAR FILTRATION RATE > 60.0 (>56); GLUCOSE, FASTING 116 MG/DL (70-100); POTASSIUM SERUM 3.3 MEQ/L (3.5-5.1); SODIUM LEVEL 139 MEQ/L (136-145)
[2020-12-18] MEDS ORDERED: POTASSIUM CHLORIDE 10 MEQ SR TABLET PO ONE (11:50)
[2020-12-18] MEDS ORDERED: HYDR-3910 PO (11:52)
[2020-12-18] MEDS ORDERED: **hydrALAZINE HCL** 25 MG TAB PO SCH (12:00)
[2020-12-18] MEDS ORDERED: GABAPENTIN 400MG CAP PO SCH (12:05)
[2020-12-18] MEDS ORDERED: VANCOMYCIN HCL 1,000 MG, VIAL MATE ADAPTER 1 EACH in NS 250 ML IV SCH (12:05)
[2020-12-18] MEDS ORDERED: ATORVASTATIN 20 MG TAB PO SCH (12:05)
[2020-12-18 12:09] LABS: C REACTIVE PROTEIN QUANTITATIV 1.38 MG/DL (0.00-0.30)
[2020-12-18] MEDS ORDERED: LACTOBACILLUS ACIDOPHILUS CAP (BACID) PO SCH (12:30)
[2020-12-18 12:45] LABS: RSV AMPLIFICATION NEGATIVE (NEGATIVE)
[2020-12-18] MEDS: cefTRIAXone SOD 2 GM in D5W MINI-BAG PLUS 50 ML IV SCH (12:50)
[2020-12-18 12:53] LABS: ERYTHROCYTE SEDIMENTATION RATE 27 mm/hr (0-20)
[2020-12-18] MEDS ORDERED: LORazepam 1 MG TAB PO PRN (13:00)
[2020-12-18] MEDS ORDERED: cloNIDine 0.1MG TABLET PO ONE (13:15)
[2020-12-18] MEDS ORDERED: VANCOMYCIN HCL 1,000 MG, VIAL MATE ADAPTER 1 EACH in NS 250 ML IV ONE ×3 (14:00→20:00)
[2020-12-18 14:08] LABS: AMPHETAMINES LEVEL URINE NEGATIVE (NEGATIVE); BARBITURATES URINE NEGATIVE (NEGATIVE); BENZODIAZEPINES URINE NEGATIVE (NEGATIVE); CANNABINOIDS URINE NEGATIVE (NEGATIVE); COCAINE METABOLITE URINE NEGATIVE (NEGATIVE); METHADONE URINE NEGATIVE (NEGATIVE); OPIATES URINE POSITIVE (NEGATIVE); PHENCYCLIDINE URINE NEGATIVE (NEGATIVE)
[2020-12-18] MEDS ORDERED: LIDOCAINE 1% MDV 20ML VIAL As Ordered ONE (14:12)
[2020-12-18] MEDS ORDERED: MULTIVITAMIN -ADULT INJECTION 10 ML, THIAMINE INJection 100 MG, FOLIC ACID 1 MG in NS 1... IV ONE (15:00)
--- NOTE | 2020-12-18 16:28 | REP ---
INDICATION: PICC LINE -POOR IV ACCESS PROLONGED IV ABX FOR OSTEOMYELITIS. COMPARISON: None. TECHNIQUE: The procedure was performed under the direct supervision of Dr. Wallace. The risks and benefits of the procedure were explained to the patient and informed consent was obtained. The right basilic vein was localized using ultrasound guidance. The skin was prepped and draped in a sterile fashion. 2% lidocaine was used as a local anesthetic. Using ultrasound guidance the basilic vein was cannulated and a 0.018 guidewire was inserted and advanced to the SVC using fluoroscopic guidance, and last image hold technology. The needle was removed and a 5.5 Sudanese dilator and peel-away sheath was inserted over the guide wire. A 5.5 Sudanese dual lumen catheter was cut to length of 43 cm. The dilator was removed and the catheter was inserted over the guide wire with the tip ending in the SVC. The peel-away sheath was removed and the catheter was flushed with heparinized saline as per Hospital protocol. The catheter was affixed to the skin and a sterile dressing was applied. The patient tolerated the procedure well and there were no immediate complications. 0.1 minutes of fluoro time was utilized for this procedure. FINDINGS: None IMPRESSION: PICC line insertion right basilic vein with the tip ending in the SVC. <Electronically signed by Arnaldo Simmons > 12/18/20 [id number] <Electronically signed by Shawn Wallace > 12/18/20 [id number]
[2020-12-18] MEDS ORDERED: **hydrALAZINE HCL** 25 MG TAB PO ONE (16:40)
[2020-12-18] MEDS ORDERED: FUROSEMIDE 40MG/4ML VIAL (J1940) IV ONE (17:00)
--- NOTE | 2020-12-18 17:05 | HPE ---
HISTORY AND PHYSICAL DATE OF ADMISSION: 12/18/2020 CHIEF COMPLAINT: "I left last time, but now I want to be treated." HISTORY OF PRESENT ILLNESS: This is a 55-year-old male with active recreational drug use with intravenous (IV) heroin, history of hepatitis C secondary to IV drug abuse cured with Harvoni, admitted from December 16, 2020 to December 17, 2020 for hypertensive urgency but left against medical advice. He also complained of chest pain at that time. Cardiac markers were negative. Patient had a CT of the chest which showed sternal osteomyelitis. Patient left against medical advice and returns today due to ongoing chest discomfort he describes as achy, rated 3/10, lasts for a few hours, but abates without intervention. Patient denies any fever, chills or shortness of breath. He says he feels like he is seeing things, like a "mushroom" for the past 20 minutes while in the emergency room. He denies any palpitations, lightheadedness, dizziness, abdominal pain or abdominal distention. His last drink of alcohol was three days ago. Alcohol level was negative. Patient had an elevated white count, 11.6, afebrile. Sedimentation rate was 27, C-reactive protein (CRP) of 1.38. He is admitted for sternal osteomyelitis and currently willing to stay. PAST MEDICAL HISTORY: 1. Hepatitis C secondary to IV drug use, cured with Harvoni. 2. Neck and back surgery. 3. Bilateral knee surgery. 4. Hypertensive urgency. 5. Actively using heroin. 6. Alcohol use every other day. 7. Smokes cigarettes. 8. No healthcare proxy. FULL CODE. FAMILY HISTORY: Mother in her 90s had a coronary artery disease (CAD), myocardial infarction ([place]) and coronary stent. ALLERGIES: No known drug allergies. HOME MEDICATIONS: - Norvasc 10 mg daily - gabapentin 800 mg three times a day - hydralazine 25 mg every 6 hours - atorvastatin 80 mg daily REVIEW OF SYSTEMS: Per history of present illness (HPI). A 12 point system otherwise negative. PHYSICAL EXAMINATION: Temperature 98, pulse 77, respiratory rate 18, blood pressure 181/101. GENERAL: Patient is awake, alert and oriented times three, answering questions appropriately. HEENT: No jugular venous distention (JVD) or thyromegaly. No cervical lymphadenopathy. Moist mucous membranes. LUNGS: Clear to auscultation. No wheezing, rales or rhonchi. HEART: S1, S2. Sinus rhythm. No murmurs, rubs or gallops. ABDOMEN: Soft, nontender, nondistended. Positive bowel sounds. No rebound or guarding. Obese abdomen. EXTREMITIES: No cyanosis or clubbing. LABORATORY DATA: White count 11.6, hemoglobin 10, hematocrit 34, platelet count 268, 66% neutrophils. Sodium 139, potassium 3.2, chloride 107, bicarbonate 25, BUN 21, creatinine 1.13, glucose 116. C-reactive protein (CRP) 1.38. IMAGING STUDIES: Chest x-ray 12/18/2020: No acute cardiopulmonary process. No significant change from prior examination. CT chest done on 12/16/2020: Sternal osteomyelitis with adjacent parasternal film noting developing abscess. Differential consideration would include subacute trauma, although appearance is more suggestive of inflammatory or infectious process. 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 Patient now presents for treatment. IMPRESSION: 1. Sternal osteomyelitis. Obtain C-reactive protein, erythrocyte sedimentation rate (ESR), blood cultures, two sets. Repeat CBC and start on empiric vancomycin and ceftriaxone. Infectious disease (ID) consultation in the morning. 2. Hypertensive urgency. Resume on home medications. Clonidine times one. 3. Hypokalemia. Supplement with potassium. 4. Obesity. Body mass index (BMI) of 36.4, complicating care. 5. History of hepatitis C secondary to IV drug use. Cured with Zi, chronic outpatient followup. 6. Active tobacco and alcohol use. Tobacco cessation counseling has been provided. Multivitamin, thiamine and folate daily. Banana bag today. 7. Deep venous thrombosis (DVT) prophylaxis with compression stockings. 8. CODE STATUS: FULL CODE. 9. Diet: Low fat, low cholesterol, 2 grams sodium. MTDD
[2020-12-18] MEDS ORDERED: NALOXONE INJ 0.4MG/1ML VIAL (J2310 PER 1MG) IV PRN (17:25)
[2020-12-18] MEDS: NALOXONE 2MG/2ML SYRINGE (J2310 PER 1MG) IV STA ×2 (18:03→18:17)
[2020-12-18] MEDS ORDERED: NALOXONE 2MG/2ML SYRINGE (J2310 PER 1MG) IV STA (18:09)
[2020-12-18] MEDS ORDERED: NALOXONE INJ 0.4MG/1ML VIAL (J2310 PER 1MG) As Ordered ONE (18:11)
[2020-12-18] MEDS ORDERED: NALOXONE INJ 0.4MG/1ML VIAL (J2310 PER 1MG) IV STA (18:13)
[2020-12-18 18:18] LABS: ABG BASE EXCESS -0.8 (-2.0-2.0); ABG HCO3 24.7 MEQ/L (22.0-26.0); ABG O2 SATURATION 22.8 % (95.0-99.0); ABG PARTIAL PRESSURE CO2 44.5 mmHg (35.0-45.0); ABG PARTIAL PRESSURE O2 17.9 mmHg (75.0-100.0); ABG STANDARD HCO3 22.6 MEQ/L (22.0-26.0); ABG TOTAL CO2 26.1 MEQ/L (22.0-29.0); ABG pH (ARTERIAL) 7.362 UNITS (7.350-7.450)
--- NOTE | 2020-12-18 18:26 | IPNPDOC ---
Date Seen The patient was seen on 12/18/20. Progress Note Rapid assessment was called due to acute toxic encephalopathy pt was seen injecting iv heroin in through his saline lock in the ER. Heroin was confiscated and police alerted. On arrival to [facility], pt was unresponsive to sternal rub. 2 doses of iv narcan 2mg were given . ABG obtained glucose was normal A/P: Heroin-induced acute toxic encephalopathy -transfer to ICU -may need bipap if acute respiratory acidosis occurs -supportive care -keep npo -dc all po meds -change to iv htn meds -prn narcan vs narcan iv gtt if no response to prn until back to baseline. VS, I&O, 24H, Fishbone Vital Signs/I&O Vital Signs Date Time Temp Pulse Resp B/P (MAP) Pulse Ox O2 Delivery O2 Flow Rate FiO2 12/18/20 16:35 97.9 20 67 155/98 (117) 97 Room Air Laboratory Data 24H LABS Laboratory Tests 2 12/18/20 10:43: Immature Granulocyte % (Auto) 0.5, Neutrophils (%) (Auto) 66.2H, Lymphocytes (%) (Auto) 22.0L, Monocytes (%) (Auto) 8.3H, Eosinophils (%) (Auto) 2.5, Basophils (%) (Auto) 0.5, Neutrophils # (Auto) 7.7, Lymphocytes # (Auto) 2.6, Monocytes # (Auto) 1.0H, Eosinophils # (Auto) 0.3, Basophils # (Auto) 0.1, Nucleated Red Blood Cells % (auto) 0.0, Erythrocyte Sedimentation Rate 27H, Anion Gap 7L, Glomerular Filtration Rate > 60.0, Calcium Level 8.2L, C-Reactive Protein, Abel titative 1.38H, Ethyl Alcohol Level < 0.003 12/18/20 10:48: POC Troponin I (Misc) 0.01 12/18/20 12:02: Coronavirus (COVID-19)(PCR) NEGATIVE, Influenza Type A (RT-PCR) NEGATIVE, Influenza Type B (RT-PCR) NEGATIVE, Respiratory Syncytial Virus (PCR) NEGATIVE 12/18/20 13:14: Urine Opiates Screen POSITIVEH, Urine Methadone Screen NEGATIVE, Urine Barbiturates Screen NEGATIVE, Urine Phencyclidine Screen NEGATIVE, Urine Amphetamines Screen NEGATIVE, Urine Benzodiazepines Screen NEGATIVE, Urine Cocaine Metabolite Screen NEGATIVE, Urine Cannabinoids Screen NEGATIVE 12/18/20 18:09: Bedside Glucose (Misc Panel) 91 12/18/20 18:13: Blood Gas Bicarbonate Standard 22.6, Arterial Blood pH 7.362, Arterial Blood Partial Pressure CO2 44.5, Arterial Blood Partial Pressure O2 17.9*L, Arterial Blood Total CO2 26.1, Arterial Blood HCO3 24.7, Arterial Blood Base Excess -0.8, Arterial Blood Oxygen Saturation 22.8L CBC/BMP Laboratory Tests 12/18/20 10:43 Microbiology Microbiology 12/18/20 Blood Culture, Received Pending DULCE MARIA LACY MD Dec 18, 2020 18:26
[2020-12-18] MEDS: D5W/0.45% SODIUM CHLORIDE 1,000 ML IV SCH (18:39)
[2020-12-18] MEDS: NALOXONE 2MG/2ML SYRINGE (J2310 PER 1MG) IV SCH ×3 (18:48→19:02)
[2020-12-18] MEDS: NITROGLYCERIN 2% OINT 1 GM *U/D* PKT TOP SCH ×2 (18:51→23:13)
[2020-12-18] MEDS ORDERED: hydrALAZINE 20MG/ML 1ML VIAL (J0360 PER 20MG) IV ONE (19:10)
[2020-12-18] MEDS: hydrALAZINE 20MG/ML 1ML VIAL (J0360 PER 20MG) IV SCH (20:22)
[2020-12-19] VITALS (12 sets, daily range): BP systolic 99–146; BP diastolic 69–107
[2020-12-19] MEDS ORDERED: **hydrALAZINE** 50 MG TAB PO SCH
[2020-12-19] MEDS: hydrALAZINE 20MG/ML 1ML VIAL (J0360 PER 20MG) IV SCH ×2 (00:14→05:00)
[2020-12-19 04:16] LABS: BASO # 0.1 10^3/uL (0.0-0.2); BASO % 0.6 % (0.0-1.0); EOS # 0.4 10^3/uL (0.0-0.5); EOS % 5.3 % (0.0-3.0); HEMATOCRIT 34.5 % (42.0-52.0); LYMPH # 2.4 10^3/uL (1.5-5.0); LYMPH % 29.6 % (24.0-44.0); MEAN CORPUSCULAR HEMOGLOBIN 26.3 pg (27.0-33.0); MEAN CORPUSCULAR HGB CONC 31.9 g/dl (32.0-36.5); MEAN CORPUSCULAR VOLUME 82.3 fl (80.0-96.0); MONO # 0.8 10^3/uL (0.0-0.8); MONO % 9.6 % (2.0-8.0); NEUTROPHILS # 4.3 10^3/uL (1.5-8.5); NEUTROPHILS % 54.5 % (36.0-66.0); PLATELET COUNT, AUTOMATED 275 10^3/uL (150-450); RED BLOOD COUNT 4.19 10^6/uL (4.30-6.10)
[2020-12-19 04:43] LABS: BLOOD UREA NITROGEN 15 MG/DL (7-18); CALCIUM LEVEL 8.2 MG/DL (8.5-10.1); CARBON DIOXIDE LEVEL 29 MEQ/L (21-32); CHLORIDE LEVEL 108 MEQ/L (98-107); CREATININE FOR GFR 0.97 MG/DL (0.70-1.30); GLOMERULAR FILTRATION RATE > 60.0 (>56); GLUCOSE, FASTING 105 MG/DL (70-100); POTASSIUM SERUM 3.5 MEQ/L (3.5-5.1); SODIUM LEVEL 143 MEQ/L (136-145)
[2020-12-19] MEDS: NITROGLYCERIN 2% OINT 1 GM *U/D* PKT TOP SCH (05:15)
[2020-12-19] MEDS: D5W/0.45% SODIUM CHLORIDE 1,000 ML IV SCH (06:31)
[2020-12-19] MEDS ORDERED: VANCOMYCIN HCL 750 MG, VIAL MATE ADAPTER 1 EACH in NS 250 ML IV SCH (07:00)
--- NOTE | 2020-12-19 07:15 | ECGEPIP ---
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
[2020-12-19] MEDS ORDERED: VANCOMYCIN HCL 500 MG in D5W MINI-BAG PLUS 100 ML IV SCH (08:00)
[2020-12-19] MEDS: LACTOBACILLUS ACIDOPHILUS CAP (BACID) PO SCH ×3 (08:28→18:09)
[2020-12-19] MEDS: FOLIC ACID 1 MG TAB PO SCH (08:29)
[2020-12-19] MEDS: BUPRENORPHINE/NALOXONE 8-2MG SUBLINGUAL TABLET(SUBOXONE) SL SCH ×3 (08:29→20:31)
[2020-12-19] MEDS: MULTIVITAMINS/MINERALS THERAP 1 TAB PO SCH (08:29)
[2020-12-19] MEDS: THIAMINE 100 MG TAB PO SCH (08:34)
[2020-12-19] MEDS ORDERED: SODIUM CHLORIDE 0.9% INJ 10 ML SYR IV PRN (08:35)
[2020-12-19] MEDS ORDERED: MULTIVITAMINS/MINERALS THERAP 1 TAB PO SCH (09:00)
[2020-12-19] MEDS ORDERED: FOLIC ACID 1 MG TAB PO SCH (09:00)
[2020-12-19] MEDS ORDERED: THIAMINE 100 MG TAB PO SCH (09:00)
[2020-12-19] MEDS ORDERED: ENOXAPARIN 40MG/0.4ML SYRINGE (J1650 PER 10MG) SC SCH (09:00)
--- NOTE | 2020-12-19 10:15 | IPNPDOC ---
Date Seen The patient was seen on 12/19/20. Progress Note SUBJECTIVE: Patient was emergently transferred to ICU from the emergency room due to obtundation after using heroin in the emergency room PICC line was placed due to poor IV access and need for IV Vanco and ceftriaxone for sternal osteomyelitis. Arterial blood gas showed no respiratory acidosis and patient did not required BiPAP therapy overnight patient was given 5 doses of IV Narcan and woke up this morning at 4 AM. Vital signs were otherwise stable he was kept n.p.o. due to aspiration risk yesterday. Patient this morning is asking to be fed he admits to using heroin. Patient is on care of you sitter was not available last night his blood pressure is much improved on IV hydralazine c urrently normal. Denies any chest pain pressure tightness fever chills shortness of breath. OBJECTIVE: PHYSICAL EXAMINATION: Vitals see below GENERAL: Patient is awake, alert and oriented times three, answering questions appropriately. Lying on his right side HEENT: No jugular venous distention (JVD) or thyromegaly. No cervical lymphadenopathy. Moist mucous membranes. LUNGS: Clear to auscultation. No wheezing, rales or rhonchi. HEART: S1, S2. Sinus rhythm. No murmurs, rubs or gallops. ABDOMEN: Soft, nontender, nondistended. Positive bowel sounds. No rebound or guarding. Obese abdomen. EXTREMITIES: No cyanosis or clubbing. LABORATORY DATA: See below IMAGING STUDIES: Chest x-ray 12/18/2020: No acute cardiopulmonary process. No significant change from prior examination. CT chest done on 12/16/2020: Sternal osteomyelitis with adjacent parasternal film noting developing abscess. Differential consideration would include subacute trauma, although appearance is more suggestive of inflammatory or infectious process. 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 Patient now presents for treatment. IMPRESSION: 1. Sternal osteomyelitis. Patient was given vancomycin and ceftriaxone from admission currently on day #2 of antibiotics. due to MRSA being negative vancomycin has been discontinued infectious disease specialist Dr. Mckeon has been consulted patient has a known history of recreational IV drug abuse and would not be suitable for outpatient IV antibiotics via PICC line PICC line was obtained due to poor IV access and inability to administer IV medications during his inpatient stay patient is better managed with IV Dalvance as outpatient if recommended by infectious disease. He remains afebrile with no white count . Day #2 of ceftriaxone. Status post 1 day of vancomycin IV 2. Hypertensive urgency. Resolved. Patient was given nitroglycerin paste and IV hydralazine. Patient may be placed on oral medications today lisinopril and Norvasc DC nitroglycerin paste and IV hydralazine 3. Hypokalemia. Resolved supplemented with potassium. 4. Obesity. Body mass index (BMI) of 36.4, complicating care. 5. History of hepatitis C secondary to IV drug use. Cured with Zi, chronic outpatient followup. 6. Active tobacco , alcohol , and heroin abuse. Tobacco cessation counseling has been provided. Multivitamin, thiamine and folate daily. Banana bag today. 7. Acute toxic encephalopathy secondary to intentional heroin abuse requiring 5 doses of IV Narcan Back to baseline mentation. Arterial blood gas showed no respiratory acidosis yesterday and patient did not require BiPAP therapy. Deep venous thrombosis (DVT) prophylaxis with compression stockings. CODE STATUS: FULL CODE. Diet: Resumed on oral intake no signs of aspiration n.p.o. status IV fluids discontinued VS, I&O, 24H, [facility] Vital Signs/I&O Vital Signs Date Time Temp Pulse Resp B/P (MAP) Pulse Ox O2 Delivery O2 Flow Rate FiO2 12/19/20 08:34 81 144/92 12/19/20 06:00 99 Room Air 12/19/20 04:00 98.6 20 I&O- Last 24 Hours up to 6 AM 12/19/20 06:00 Intake Total 980 ml Output Total 5845 ml Balance -4865 ml Laboratory Data 24H LABS Laboratory Tests 2 12/18/20 10:43: Immature Granulocyte % (Auto) 0.5, Neutrophils (%) (Auto) 66.2H, Lymphocytes (%) (Auto) 22.0L, Monocytes (%) (Auto) 8.3H, Eosinophils (%) (Auto) 2.5, Basophils (%) (Auto) 0.5, Neutrophils # (Auto) 7.7, Lymphocytes # (Auto) 2.6, Monocytes # (Auto) 1.0H, Eosinophils # (Auto) 0.3, Basophils # (Auto) 0.1, Nucleated Red B lood Cells % (auto) 0.0, Erythrocyte Sedimentation Rate 27H, Anion Gap 7L, Glomerular Filtration Rate > 60.0, Calcium Level 8.2L, C-Reactive Protein, Quantitative 1.38H, Ethyl Alcohol Level < 0.003 12/18/20 10:48: POC Troponin I (Misc) 0.01 12/18/20 12:02: Coronavirus (COVID-19)(PCR) NEGATIVE, Influenza Type A (RT-PCR) NEGATIVE, Influenza Type B (RT-PCR) NEGATIVE, Respiratory Syncytial Virus (PCR) NEGATIVE 12/18/20 13:14: Urine Opiates Screen POSITIVEH, Urine Methadone Screen NEGATIVE, Urine Barbiturates Screen NEGATIVE, Urine Phencyclidine Screen NEGATIVE, Urine Amphetamines Screen NEGATIVE, Urine Benzodiazepines Screen NEGATIVE, Urine Cocaine Metabolite Screen NEGATIVE, Urine Cannabinoids Screen NEGATIVE 12/18/20 18:09: Bedside Glucose (Misc Panel) 91 12/18/20 18:13: Blood Gas Bicarbonate Standard 22.6, Arterial Blood pH 7.362, Arterial Blood Partial Pressure CO2 44.5, Arterial Blood Partial Pressure O2 17.9*L, Arterial Blood Total CO2 26.1, Arterial Blood HCO3 24.7, Arterial Blood Base Excess -0.8, Arterial Blood Oxygen Saturation 22.8L 12/18/20 20:20: Methicillin-Resist S.aureus DNA PCR NOT DETECTED 12/19/20 04:10: Immature Granulocyte % (Auto) 0.4, Neutrophils (%) (Auto) 54.5, Lymphocytes (%) (Auto) 29.6, Monocytes (%) (Auto) 9.6H, Eosinophils (%) (Auto) 5.3H, Basophils (%) (Auto) 0.6, Neutrophils # (Auto) 4.3, Lymphocytes # (Auto) 2.4, Monocytes # (Auto) 0.8, Eosinophils # (Auto) 0.4, Basophils # (Auto) 0.1, Nucleated Red Bloo d Cells % (auto) 0.0, Anion Gap 6L, Glomerular Filtration Rate > 60.0, Calcium Level 8.2L CBC/BMP Laboratory Tests 12/18/20 10:43 12/19/20 04:10 Microbiology Microbiology 12/18/20 Blood Culture, Received Pending DULCE MARIA LACY MD Dec 19, 2020 10:15
[2020-12-19] MEDS: cefTRIAXone SOD 2 GM in D5W MINI-BAG PLUS 50 ML IV SCH (13:56)
[2020-12-19] MEDS: NICOTINE 21MG/24HR 1 EA TRANSDERMAL TD SCH (15:41)
[2020-12-19 18:04] LABS: C REACTIVE PROTEIN QUANTITATIV 1.44 MG/DL (0.00-0.30); TROPONIN I < 0.02 NG/ML (< 0.10)
[2020-12-19] MEDS: SODIUM CHLORIDE 0.9% INJ 10 ML SYR IV SCH (18:08)
--- NOTE | 2020-12-19 19:37 | REP ---
INDICATION: Sternal swelling ? abscess, fracture ?. COMPARISON: None. TECHNIQUE: Ultrasonographic evaluation of the anterior subcutaneous sternal soft tissues FINDINGS: Ultrasonography cannot rule out a fracture. The soft tissues anterior to the sternum have an unremarkable appearance. I cannot rule out a fracture. There might be swelling at the sternomanubrial notch. IMPRESSION: CT is recommended. A fracture cannot be ruled in or ruled out by ultrasound. The does appear to be some manubriosternal soft tissue swelling <Electronically signed by Federico David > 12/19/201933
[2020-12-20 04:00] VITALS: BP 138/81
[2020-12-20 04:42] LABS: BASO # 0.1 10^3/uL (0.0-0.2); BASO % 0.6 % (0.0-1.0); EOS # 0.5 10^3/uL (0.0-0.5); EOS % 6.6 % (0.0-3.0); HEMATOCRIT 33.5 % (42.0-52.0); HEMOGLOBIN 10.9 g/dl (13.5-17.5); LYMPH # 2.3 10^3/uL (1.5-5.0); LYMPH % 30.3 % (24.0-44.0); MEAN CORPUSCULAR HEMOGLOBIN 26.8 pg (27.0-33.0); MEAN CORPUSCULAR HGB CONC 32.5 g/dl (32.0-36.5); MEAN CORPUSCULAR VOLUME 82.5 fl (80.0-96.0); MONO # 0.6 10^3/uL (0.0-0.8); MONO % 7.8 % (2.0-8.0); NEUTROPHILS # 4.2 10^3/uL (1.5-8.5); NEUTROPHILS % 54.3 % (36.0-66.0); PLATELET COUNT, AUTOMATED 258 10^3/uL (150-450); RED BLOOD COUNT 4.06 10^6/uL (4.30-6.10); WHITE BLOOD COUNT 7.7 10^3/uL (4.0-10.0)
[2020-12-20 04:58] LABS: BLOOD UREA NITROGEN 14 MG/DL (7-18); CALCIUM LEVEL 8.4 MG/DL (8.5-10.1); CARBON DIOXIDE LEVEL 29 MEQ/L (21-32); CHLORIDE LEVEL 108 MEQ/L (98-107); CREATININE FOR GFR 0.92 MG/DL (0.70-1.30); GLOMERULAR FILTRATION RATE > 60.0 (>56); GLUCOSE, FASTING 88 MG/DL (70-100); POTASSIUM SERUM 3.8 MEQ/L (3.5-5.1); SODIUM LEVEL 142 MEQ/L (136-145)
[2020-12-20] MEDS: SODIUM CHLORIDE 0.9% INJ 10 ML SYR IV SCH (05:24)
--- NOTE | 2020-12-20 07:27 | IPNPDOC ---
Date Seen The patient was seen on 12/20/20. Progress Note SUBJECTIVE: c/o 10/10 pain in sternum no fever/chills/cough/sob. Chest echo: fluid collection cannot rule out fracture recommend ct per ID, Biopsy if possible. also c/o insomnia. no withdrawal doing well on suboxone, but wants to be dc today bc [facility] appt.has pcp appt wednesday. not medically stable for dc. OBJECTIVE: PHYSICAL EXAMINATION: Vitals see below GENERAL: eating breakfast no distress HEENT: No jugular venous distention (JVD) or thyromegaly. No cervical lymphadenopathy. Moist mucous membranes.no carotid bruit LUNGS: Clear to auscultation. No wheezing, rales or rhonchi. reproducible sternal pain on palpation HEART: S1, S2. Sinus rhythm. No murmurs, rubs or gallops. ABDOMEN: Soft, nontender, nondistended. Positive bowel sounds. No rebound or guarding. Obese abdomen. EXTREMITIES: No cyanosis or clubbing. LABORATORY DATA: See below IMAGING STUDIES: Chest x-ray 12/18/2020: No acute cardiopulmonary process. No significant change from prior examination. CT chest done on 12/16/2020: Sternal osteomyelitis with adjacent parasternal film noting developing abscess. Differential consideration would include subacute trauma, although appearance is more suggestive of inflammatory or infectious process. 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 Patient now presents for treatment. IMPRESSION: 1. Sternal osteomyelitis. Patient was given vancomycin and ceftriaxone from admission currently on day #3 of antibiotics. due to MRSA being negative vancomycin has been discontinued infectious disease specialist Dr. Mckeon has been consulted patient has a known history of recreational IV drug abuse and would not be suitable for outpatient IV antibiotics via PICC line Day #3 of cef triaxone. Status post 1 day of vancomycin IV ID recommends biopsy of sternal osteo. dced lovenox for dvt prophylaxis. ordered ct guided biopsy if possible today . ID discussed yesterday w dr. david radiology. 2. Hypertensive urgency. Resolved. Patient was given nitroglycerin paste and IV hydralazine. Patient may be placed on oral medications today lisinopril and Norvasc DC nitroglycerin paste and IV hydralazine 3. Hypokalemia. Resolved supplemented with potassium. 4. Obesity. Body mass index (BMI) of 36.4, complicating care. 5. History of hepatitis C secondary to IV drug use. Cured with Harvoni, chronic outpatient followup. 6. Active tobacco , alcohol , and heroin abuse. Tobacco cessation counseling has been provided. Multivitamin, thiamine and folate daily. Banana bag today. 7. Acute toxic encephalopathy secondary to intentional heroin abuse requiring 5 doses of IV Narcan Back to baseline mentation. 8. insomnia pt requesting xanax 9. Heroin buse used heroin in ER s/p 5 doses of narcan on suboxone cancel [facility] appt today not medically cleared for dc disposition: not medically cleared. 3-4days. VS, I&O, 24H, Fishbone Vital Signs/I&O Vital Signs Date Time Temp Pulse Resp B/P (MAP) Pulse Ox O2 Delivery O2 Flow Rate FiO2 12/20/20 04:00 98.1 72 18 138/81 (100) 98 Room Air I&O- Last 24 Hours up to 6 AM 12/20/20 05:59 Intake Total 4735 ml Output Total 2735 ml Balance 2000 ml Laboratory Data 24H LABS Laboratory Tests 2 12/20/20 04:25: Immature Granulocyte % (Auto) 0.4, Neutrophils (%) (Auto) 54.3, Lymphocytes (%) (Auto) 30.3, Monocytes (%) (Auto) 7.8, Eosinophils (%) (Auto) 6.6H, Basophils ( %) (Auto) 0.6, Neutrophils # (Auto) 4.2, Lymphocytes # (Auto) 2.3, Monocytes # (Auto) 0.6, Eosinophils # (Auto) 0.5, Basophils # (Auto) 0.1, Nucleated Red Blood Cells % (auto) 0.0, Anion Gap 5L, Glomerular Filtration Rate > 60.0, Calcium Level 8.4L CBC/BMP Laboratory Tests 12/20/20 04:25 Microbiology Microbiology 12/18/20 Blood Culture - Preliminary, Resulted No growth after 24 hours . All specim... DULCE MARIA LACY MD Dec 20, 2020 07:27
[2020-12-20] MEDS ORDERED: KETOROLAC 30 MG/ML 1ML VIAL IV ONE (08:00)
[2020-12-20 08:28] VITALS: BP 162/81
[2020-12-20] MEDS: MULTIVITAMINS/MINERALS THERAP 1 TAB PO SCH (08:33)
[2020-12-20] MEDS: THIAMINE 100 MG TAB PO SCH (08:33)
[2020-12-20] MEDS: NICOTINE 21MG/24HR 1 EA TRANSDERMAL TD SCH (08:33)
[2020-12-20] MEDS: BUPRENORPHINE/NALOXONE 8-2MG SUBLINGUAL TABLET(SUBOXONE) SL SCH (08:33)
[2020-12-20] MEDS: FOLIC ACID 1 MG TAB PO SCH (08:34)
[2020-12-20] MEDS: LACTOBACILLUS ACIDOPHILUS CAP (BACID) PO SCH (08:34)
[2020-12-20 08:58] LABS: ERYTHROCYTE SEDIMENTATION RATE 24 mm/hr (0-20)
[2020-12-20 09:17] LABS: INR 1.02; PROTHROMBIN TIME 13.6 SECONDS (12.5-14.3)
[2020-12-20] MEDS ORDERED: AMLO10TA PO (10:01)
[2020-12-20] MEDS ORDERED: LISI10TA22 PO (10:02)
[2020-12-20] MEDS ORDERED: QC A650T3 PO (10:03)
[2020-12-20] MEDS ORDERED: IBUP-1114 PO (10:03)
[2020-12-20 10:09] LABS: C REACTIVE PROTEIN QUANTITATIV 0.85 MG/DL (0.00-0.30)
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
--- NOTE | 2020-12-20 12:55 | DSES ---
DISCHARGE SUMMARY DATE OF ADMISSION: 12/18/2020 DATE OF DISCHARGE: 12/20/2020 LAYOUT OPERATOR: VIRGINIA BAILON MD PRIMARY DISCHARGE DIAGNOSIS: 1. Medical noncompliance. 2. IV heroin use causing acute toxic encephalopathy requiring five doses of IV Narcan. 3. Presumed sternal osteomyelitis. 4. Probable sternal fracture with no signs of infection. 5. Hypertensive urgency. 6. Hypokalemia. 7. Obesity. 8. History of hepatitis C secondary to IV drug use. 9. Active tobacco abuse. 10.Active alcohol abuse. 11.Active heroin abuse. 12.Insomnia. DISCHARGE MEDICATIONS: 1. Tylenol 650 t.i.d. 2. Norvasc 10 daily. 3. Ibuprofen 400 t.i.d. as needed for pain. 4. Lisinopril 10 mg daily. 5. No antibiotics needed per Infectious Disease specialist, Dr. Bailon. DISCHARGE INSTRUCTIONS: Primary Care, Infectious Disease and [facility] follow-up within one week of discharge. Avoid smoking, alcohol and recreational drug use with heroin. HOSPITAL COURSE: This is a 55-year-old male admitted 12/16, left against medical advice on 12/17 at [facility] when he presented with complaints of chest pain, found to have hypertensive urgency and acute kidney injury, treated with IV fluids and hydralazine and Norvasc. At that time patient left against medical advice. CT of chest showed possible sternal osteomyelitis. Patient returns with persistent pain at the left side on December 18, admitted for sternal osteomyelitis. While in the Emergency Room, the patient used heroin, became obtunded, transferring him to ICU emergently. Arterial blood gas was not showing any respiratory acidosis and he did not require BiPAP therapy. He was given five doses of IV Narcan and slept for 16 hours post heroin use. He was started on IV Vancomycin, Ceftriaxone initially for sternal osteomyelitis. We discontinued the Vancomycin after a MRSA screen was negative. He had hypertensive urgency treated with Lisinopril which responded well. Infectious Disease specialist, Dr. Bailon evaluated the patient and did a chest ultrasound which showed possible fracture and soft tissue swelling. There were no signs of acute infection and she recommended discharge home with outpatient follow-up. PHYSICAL EXAMINATION ON DISCHARGE: VITAL SIGNS: Temperature 97.8, pulse 77, respiratory rate 18, blood pressure 138 to 162 systolic, diastolic 81, 98% on room air. GENERAL: Awake, alert and oriented to person, place and time answering questions appropriately. LUNGS: Clear to auscultation. No wheezing, rales or rhonchi. Reproducible sternal pain on palpation. HEART: S1 and S2, sinus rhythm. ABDOMEN: Soft, nontender, nondistended. Positive bowel sounds. EXTREMITIES: No cyanosis, clubbing or pitting edema. LABORATORY DATA/MICROBIOLOGY/IMAGING STUDIES: Please see the chart. TIME SPENT ON DISCHARGE: 30 minutes MTDD
--- NOTE | 2020-12-20 13:38 | IPN ---
PROGRESS NOTE DATE: 12/20/2020 Mario is anxious to go home today. He has had no fever or chills. No nausea, vomiting, or diarrhea. He does complain of some pain at the midsternum if he pushes on it, but otherwise it is not painful. LABORATORY DATA: White count 7.7, hemoglobin 10.9, hematocrit 33.5, platelets 258, 54% neutrophils, 33% lymphocytes, 7% monocytes, ESR 24. Sodium 142, potassium 3.8, chloride 108, bicarbonate 29, BUN 14, creatinine 0.92, glucose 88, calcium 8.4. CRP 0.85. Procalcitonin less than 0.05. Blood culture: No growth after 24 hours. Chest ultrasound on December 19 shows some manubrial sternal soft tissue swelling. CT is recommended, but the radiologist did not review the CT that was done 2 days prior. Chest x-ray PA and lateral showed no acute cardiopulmonary disease. No significant change. Unremarkable. There is no mention of the sternum on the chest x-ray. PHYSICAL EXAMINATION: Temperature is 97.8, pulse 77, respirations 16, blood pressure 162/81, oxygen saturation 98% on room air. HEART: Normal S1, S2 with a systolic ejection murmur, 2/6, at the left upper sternal border. LUNGS: Clear. No wheezes, rales, or rhonchi. ABDOMEN: Soft, nontender. No hepatosplenomegaly. EXTREMITIES: No clubbing, cyanosis, or edema. STERNUM: Midsternum has slight swelling and tenderness but no redness, fluctuance, or crepitance. 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 My suspicion of sternal osteomyelitis is very low. His procalcitonin is normal. His C-reactive protein (CRP) is barely elevated as well as his sedimentation rate. Even though he is at risk of sternal osteomyelitis due to intravenous (IV) drug use, the patient has not had bacteremia and does not have any evidence of boils or recent history of infection to seed his sternum. At this point I would not recommend doing a biopsy or any further studies, because he just received 2 days of broad-spectrum antibiotics with vancomycin and Rocephin. I would suggest holding off on any further studies and following in my office in 10-14 days. 2. History of IV drug use. The patient was advised to remain completely abstinent, as he is at risk of seeding both his knee replacements and his sternum, and the patient was adamant that he would remain abstinent and going to [facility] today to start Suboxone. PLAN: Followup at infectious disease office in 10-14 days. Do not discharge on any antibiotics. Remove peripherally inserted central catheter (PICC) line. Case has been discussed with Dr. Cheema. LUIS MANUEL
[2020-12-20] MEDS ORDERED: ALPRAZolam 0.25 MG TAB PO SCH (21:00)
== END 2020-12-20 10:50 | disposition home or self-care (01) | DRG 862 ==
LOC: M ED 10:25 → M ED INP 12:01 → ENRESERV 14:00 → M MSPAV 16:36 → M ICU 17:30
PROVIDERS: ADMIT General Practice; ATTEND General Practice
PROC: 02HV33Z Insertion of Infusion Device into Superior Vena Cava, Percutaneous Approach (ICD-10-PCS; principal; 2020-12-18 14:30)
DX: S22.21XD Fracture of manubrium, subsequent encounter for fracture with routine healing (principal); G92 Toxic encephalopathy; M86.8X8 Other osteomyelitis, other site; Z91.14 Patient's other noncompliance with medication regimen; E87.6 Hypokalemia; G47.00 Insomnia, unspecified; F10.20 Alcohol dependence, uncomplicated; E66.9 Obesity, unspecified; F17.210 Nicotine dependence, cigarettes, uncomplicated; I16.0 Hypertensive urgency; F11.10 Opioid abuse, uncomplicated; B18.2 Chronic viral hepatitis C; Z79.899 Other long term (current) drug therapy; Z68.36 Body mass index [BMI] 36.0-36.9, adult; V48.5XXD Car driver injured in noncollision transport accident in traffic accident, subsequent encounter; F12.10 Cannabis abuse, uncomplicated

== ENCOUNTER → 2021-01-21 | Outpatient (CLI) | payer OTHER, MEDICAID ==
[~2021-01-21] MED LIST changes: +HYDR-3910 PO; +IBUP-1114 PO; +LISI10TA22 PO; -MULTIVITAMINS/MINERALS THERAP 1 TAB PO SCH; +QC A650T3 PO
[2021-01-21 15:43] LABS: BASO # 0.1 10^3/uL (0.0-0.2); BASO % 0.9 % (0.0-1.0); EOS # 0.3 10^3/uL (0.0-0.5); EOS % 4.3 % (0.0-3.0); HEMATOCRIT 36.1 % (42.0-52.0); HEMOGLOBIN 11.6 g/dl (13.5-17.5); LYMPH # 1.5 10^3/uL (1.5-5.0); LYMPH % 23.9 % (24.0-44.0); MEAN CORPUSCULAR HEMOGLOBIN 26.5 pg (27.0-33.0); MEAN CORPUSCULAR HGB CONC 32.1 g/dl (32.0-36.5); MEAN CORPUSCULAR VOLUME 82.6 fl (80.0-96.0); MONO # 0.7 10^3/uL (0.0-0.8); MONO % 10.4 % (2.0-8.0); NEUTROPHILS # 3.9 10^3/uL (1.5-8.5); NEUTROPHILS % 60.2 % (36.0-66.0); PLATELET COUNT, AUTOMATED 299 10^3/uL (150-450); RED BLOOD COUNT 4.37 10^6/uL (4.30-6.10); WHITE BLOOD COUNT 6.5 10^3/uL (4.0-10.0)
[2021-01-21 16:16] LABS: ERYTHROCYTE SEDIMENTATION RATE 17 mm/hr (0-20)
[2021-01-21 17:41] LABS: ALBUMIN 3.8 GM/DL (3.2-5.2); ALT/SGPT 31 U/L (12-78); BILIRUBIN,TOTAL 0.5 MG/DL (0.2-1.0); BLOOD UREA NITROGEN 18 MG/DL (7-18); C REACTIVE PROTEIN QUANTITATIV 0.53 MG/DL (0.00-0.30); CALCIUM LEVEL 9.6 MG/DL (8.5-10.1); CARBON DIOXIDE LEVEL 32 MEQ/L (21-32); CHLORIDE LEVEL 103 MEQ/L (98-107); CREATININE FOR GFR 0.84 MG/DL (0.70-1.30); GLOMERULAR FILTRATION RATE > 60.0 (>56); GLUCOSE, FASTING 87 MG/DL (70-100); POTASSIUM SERUM 4.6 MEQ/L (3.5-5.1); SODIUM LEVEL 138 MEQ/L (136-145); TOTAL PROTEIN 7.1 GM/DL (6.4-8.2)
[2021-01-21 18:29] LABS: HIV 1&2 SCREEN CENTAUR NEGATIVE (NEGATIVE)
[2021-01-23 12:14] LABS: HEPATITIS C QUANTITATION HCV Not Detected IU/mL (.)
== END ==
LOC: M PLALAB 13:17
PROVIDERS: ATTEND Internal Medicine Infectious Disease
DX: S22.22 Fracture of body of sternum (principal); B18.2 Chronic viral hepatitis C; F19.90 Other psychoactive substance use, unspecified, uncomplicated; Z79.899 Other long term (current) drug therapy
CPT/HCPCS: 36415; 80053; 80061; 83036; 85025; 85652; 86140; 87389; 87522; G0463

== ENCOUNTER → 2021-01-21 | Outpatient (CLI) | payer OTHER, MEDICAID ==
[2021-01-21 16:28] LABS: HEMOGLOBIN A1c 5.4 %
[2021-01-21 17:44] LABS: CHOLESTEROL RISK RATIO 2.783 (<5)
== END ==
LOC: M PLALAB 13:19
PROVIDERS: ATTEND Family Medicine
DX: Z13.1 Encounter for screening for diabetes mellitus (principal)

== ENCOUNTER → 2021-02-13 | Outpatient (CLI) | payer OTHER, MEDICAID ==
--- NOTE | 2021-02-13 20:29 | REP ---
INDICATION: SCREENING COMPARISON: 12/16/2020 TECHNIQUE: Axial noncontrast images from the thoracic inlet to the upper abdomen using low-dose lung screening technique (LDCT). FINDINGS: The bilateral lung rosales are well aerated and demonstrate minimal age-related changes without acute consolidation, suspicious nodule or mass. No effusion. No pneumothorax. Tracheobronchial tree is patent. Limited evaluation of the mediastinum demonstrates stable atherosclerotic changes to the thoracic aorta and coronary arteries without cardiomegaly. Old sternal fracture and rib fractures are again identified as compared with 12/16/2020. IMPRESSION: Lung-RADS category 1. Management recommendations include annual low-dose CT surveillance. <Electronically signed by Rodrigo Silvestre > 02/13/212024
== END ==
LOC: M RAD 13:38
PROVIDERS: ATTEND Family Medicine
DX: Z12.2 Encounter for screening for malignant neoplasm of respiratory organs (principal); F17.218 Nicotine dependence, cigarettes, with other nicotine-induced disorders

== ENCOUNTER → 2021-05-05 | Outpatient (REF) | payer OTHER, MEDICAID | LOC: M SFHCPLAZ 11:35 | PROVIDERS: ATTEND Family Medicine | DX: D64.9 Anemia, unspecified (principal); Z12.5 Encounter for screening for malignant neoplasm of prostate ==

== ENCOUNTER → 2021-05-07 | Outpatient (CLI) | payer OTHER, MEDICAID ==
--- NOTE | 2021-05-07 12:44 | ECGEPIP ---
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
[2021-05-07 13:03] LABS: HEMATOCRIT 35.4 % (42.0-52.0); HEMOGLOBIN 11.3 g/dl (13.5-17.5); MEAN CORPUSCULAR HEMOGLOBIN 26.9 pg (27.0-33.0); MEAN CORPUSCULAR HGB CONC 31.9 g/dl (32.0-36.5); MEAN CORPUSCULAR VOLUME 84.3 fl (80.0-96.0); PLATELET COUNT, AUTOMATED 250 10^3/uL (150-450); WHITE BLOOD COUNT 5.8 10^3/uL (4.0-10.0)
[2021-05-07 13:38] LABS: ALBUMIN 3.4 GM/DL (3.2-5.2); ALT/SGPT 30 U/L (12-78); BILIRUBIN,TOTAL 0.4 MG/DL (0.2-1.0); BLOOD UREA NITROGEN 20 MG/DL (7-18); CALCIUM LEVEL 8.8 MG/DL (8.5-10.1); CARBON DIOXIDE LEVEL 27 MEQ/L (21-32); CHLORIDE LEVEL 105 MEQ/L (98-107); CREATININE FOR GFR 1.02 MG/DL (0.70-1.30); GLOMERULAR FILTRATION RATE > 60.0 (>56); GLUCOSE, FASTING 74 MG/DL (70-100); POTASSIUM SERUM 4.4 MEQ/L (3.5-5.1); SODIUM LEVEL 138 MEQ/L (136-145); TOTAL PROTEIN 6.7 GM/DL (6.4-8.2)
[2021-05-07 14:15] LABS: HEPATITIS B SURFACE ANTIGEN NEGATIVE (NEGATIVE)
[2021-05-07 14:42] LABS: HIV 1&2 SCREEN CENTAUR NEGATIVE (NEGATIVE)
[2021-05-07 14:53] LABS: HEPATITIS C VIRUS ABY INDEX > 11.0 INDEX (<0.8)
[2021-05-07 15:37] LABS: GC DNA AMPLIFICATION NEGATIVE (NEGATIVE)
== END ==
LOC: M EKG 11:59
PROVIDERS: ATTEND Family Medicine
DX: F11.20 Opioid dependence, uncomplicated (principal)

== ENCOUNTER → 2021-05-20 | Outpatient (CLI) | payer OTHER, MEDICAID | LOC: M LAB 12:38 | PROVIDERS: ATTEND Family Medicine | DX: F14.20 Cocaine dependence, uncomplicated (principal) ==

== ENCOUNTER → 2021-07-17 | Outpatient (REF) | payer MEDICARE, MEDICAID | LOC: M LAB REF 17:08 | PROVIDERS: ATTEND Family Medicine | DX: B07.9 Viral wart, unspecified (principal) | CPT/HCPCS: 11102; 11103; 88305; G0463 ==

== ENCOUNTER → 2021-11-03 | Outpatient (REF) | payer MEDICARE | LOC: M SFHCPLAZ 14:16 | PROVIDERS: ATTEND Family Medicine | DX: M25.511 Pain in right shoulder (principal) ==

== ENCOUNTER → 2021-11-05 | Outpatient (CLI) | payer MEDICARE ==
[2021-11-06 13:08] LABS: ANTI DOUBLE STRAND-DNA AB <1 IU/mL (0-9); ANTINUCLEAR ANTIBODIES DIRECT Positive (Negative); RNP ANTIBODIES 2.4 AI (0.0-0.9); SJOGREN'S ANTI SS-A <0.2 AI (0.0-0.9); SJOGREN'S ANTI SS-B <0.2 AI (0.0-0.9); SMITH ANTIBODIES <0.2 AI (0.0-0.9)
== END ==
LOC: M PLALAB 10:05
PROVIDERS: ATTEND Family Medicine
DX: I10 Essential (primary) hypertension (principal); M25.511 Pain in right shoulder

== ENCOUNTER → 2021-12-08 | Outpatient (REF) | LOC: M LAB 13:33 ==